=== PATIENT | female | born 1980 | race Caucasian/White ===

== ENCOUNTER 2017-03-31 06:08 | Inpatient (IN) | payer OTHER ==
[2017-03-31] MEDS ORDERED: OXYTOCIN 10 UNIT/ML 1 ML VIAL IM PRN (06:16)
[2017-03-31] MEDS ORDERED: METHYLERGONOVINE 0.2 MG/ML 1 ML AMP IM PRN (06:16)
[2017-03-31] MEDS ORDERED: TERBUTALINE 1 MG/ML VIAL SQ PRN (06:16)
[2017-03-31] MEDS ORDERED: LIDOCAINE 1% (PF) 10 MG/ML (30 ML SDV) SQ PRN (06:16)
[2017-03-31] MEDS ORDERED: CARBOPROST TROMETHAMINE 250 MCG/ML 1 ML AMP IM PRN (06:16)
[2017-03-31] MEDS ORDERED: PENICILLIN G POTASSIUM 5,000,000 UNIT in DEXTROSE 5% IN WATER 100 ML IV STA ×2 (06:16)
[2017-03-31] MEDS: LACTATED RINGERS 1,000 ML IV SCH ×3 (06:33→21:53)
[2017-03-31] MEDS: OXYTOCIN 20 UNITS/1000 ML NS 1,000 ML IV SCH (06:33)
[2017-03-31 06:39] LABS: Basophils % (A) 0 %; CH 32.3; CHCM 35.1; Eosinophils # (A) 0.3 k/uL (0-0.7); Eosinophils % (A) 2 %; HCT 40.7 % (34.0-46.0); HDW 2.47; HGB 14.1 gm/dL (11.4-16.0); Luc # (Auto) 0.14; Luc % (Auto) 1; Lymphocytes # (A) 1.8 k/uL (1.0-4.8); Lymphocytes % (A) 15 %; MCHC 34.6 g/dL (31.0-37.0); MCV 92.5 fL (80.0-100.0); Mean Platelet Volume 7.6; Monocytes # (A) 0.6 k/uL (0-1.0); Monocytes % (A) 5 %; Neutrophils # (A) 9.4 k/uL (1.3-7.7); Neutrophils % (A) 77 %; RDW 14.3 % (11.5-15.5); WBC 12.2 k/uL (3.8-10.6); WBC (Perox) 11.87
--- NOTE | 2017-03-31 06:39 | P.HPOB ---
History of Present Illness H&P Date: 03/31/17 Chief Complaint: Here for induction of labor at 39 and one sevenths weeks This is a 36-year-old white female 3 para 2002 EDC 04/07/2017 at 39 and one sevenths weeks' gestation. Patient presents this morning for induction with favorable multiparous cervix. Fetus is been active throughout the . She is having mild uterine contractions every 3-4 minutes apart at this time. She denies fluid leakage or vaginal bleeding. Past medical history is significant for tachycardia in the past, pneumonia as a child, and menometrorrhagia in the past. Past surgical history wisdom teeth extracted in the past, benign cyst removed of the neck. Current medications Reglan 10 mg 20 minutes before meals when necessary, vitamin daily. ALLERGIES include Unisom to which patient reports chest pain. Family history is significant for lung cancer, hypertension, prostate cancer, COPD, diabetes. Obstetric history is significant for 2 full-term vaginal deliveries, both male. Social history patient is , she has never been a smoker, she denies alcohol or drug use. Obstetric history is significant for positive group B strep cultures, blood type B positive, rubella status nonimmune. Urine culture, hepatitis B surface antigen, HIV testing all negative. One-hour Glucola 86. On exam this is a pleasant white female, she is 5 foot 5 inches, 156 pounds, blood pressure 133/75. Vital signs are stable and the patient is afebrile. The general physical exam is within normal limits. Uterine contractions are occurring spontaneously every 4-7 minutes apart of mild intensity. heart rate is in the 140s with frequent accelerations consistent with reactive NST. Cervix is 4 cm dilated, 60-70%, -2 station, vertex presentation. Artificial amniorrhexis reveals clear fluid. Impression: 39 and one sevenths weeks intrauterine , here for induction of labor. Positive group B strep cultures. All signs reassuring. Plan: Penicillin G prophylaxis per protocol. Oxytocin augmentation as needed. Close maternal and surveillance. Anticipate normal spontaneous vaginal delivery. Review of Systems Negative except as in HPI Past Medical History Past Medical History: No Reported History History of Any Multi-Drug Resistant Organisms: None Reported Past Surgical History: No Surgical Hx Reported Past Psychological History: Anxiety Smoking Status: Never smoker Past Alcohol Use History: None Reported Past Drug Use History: None Reported Medications and Allergies Home Medications Medication Instructions Recorded Confirmed Type Pnv,Calcium 72/Iron/Folic Acid 1 tab PO DAILY 03/31/17 03/31/17 History [ Plus Tablet] Allergies Allergy/AdvReac Type Severity Reaction Status Date / Time No Known Drug Allergies Allergy Unknown Verified 03/31/17 06:15 Exam - Vital Signs Vital signs: Intake and Output 03/30/17 03/30/17 03/31/17 14:59 22:59 06:59 Other: Weight 70.76 kg Patient Weight 03/31/17 06:59 Weight 70.76 kg See dictation under HPI Assessment and Plan Plan: Penicillin G prophylaxis per hospital protocol. Oxytocin augmentation per hospital protocol. Close maternal and surveillance. Anticipating normal spontaneous vaginal delivery. Time with Patient: Less than 30
[2017-03-31 07:18] VITALS: BMI 25.9
[2017-03-31] MEDS ORDERED: fentaNYL (PF) 50 MCG/ML 5 ML AMP ONE (08:52)
[2017-03-31] MEDS ORDERED: SODIUM CHLORIDE 0.9% 100 ML BAG ONE (08:52)
[2017-03-31] MEDS ORDERED: BUPIVACAINE (PF) 0.25% 30 ML VIAL ONE (08:52)
[2017-03-31] MEDS ORDERED: BUPIVACAINE (PF) 0.25% 25 ML, fentaNYL (PF) 200 MCG in SODIUM CHLORIDE 0.9% 71 ML EPIDURAL ONE (09:08)
[2017-03-31] MEDS: PENICILLIN G POTASSIUM 2,500,000 UNIT in DEXTROSE 5% IN WATER 100 ML IV SCH ×6 (10:31→21:53)
[2017-03-31] MEDS ORDERED: HYDROCORTISONE 2.5% RECTAL CREAM 30 GM TUBE RECTAL PRN (12:03)
[2017-03-31] MEDS ORDERED: SIMETHICONE 80 MG CHEWABLE PO PRN (12:03)
[2017-03-31] MEDS ORDERED: IBUPROFEN 600 MG TAB PO PRN (12:03)
[2017-03-31] MEDS ORDERED: Acetaminophen-Codeine 300-30mg TAB PO PRN (12:03)
[2017-03-31] MEDS ORDERED: diphenhydrAMINE 50 MG/ML 1 ML VIAL IVP PRN ×2 (12:03)
[2017-03-31] MEDS ORDERED: LANOLIN CREAM 5 GM TUBE TOPICAL PRN (12:03)
[2017-03-31] MEDS ORDERED: ACETAMINOPHEN TAB 325 MG TAB PO PRN (12:03)
[2017-03-31] MEDS ORDERED: BENZOCAINE/MENTHOL SPRAY 1 GM/SPRAY AEROSOL TOPICAL PRN (12:03)
[2017-03-31] MEDS ORDERED: ZOLPIDEM 5 MG TAB PO PRN (12:03)
[2017-03-31] MEDS ORDERED: diphenhydrAMINE 50 MG CAP PO PRN (12:03)
[2017-03-31] MEDS ORDERED: diphenhydrAMINE 25 MG CAP PO PRN (12:03)
[2017-03-31] MEDS ORDERED: WITCH HAZEL 1 EACH MED..PAD TOPICAL PRN (12:03)
--- NOTE | 2017-03-31 12:03 | P.PROBDLV ---
Vaginal Delivery Note - . Vaginal Delivery Note: This is a 36-year-old 3 para 2002 EDC 04/07/2017 at 39 and one sevenths weeks' gestation. Patient presented for induction with favorable cervix and increasing maternal discomfort. Fetus is been active throughout the . Group B strep cultures are positive, penicillin G has been given 2 units per hospital protocol. Epidural has been placed per her request. Artificial amniorrhexis did reveal clear fluid. Please see my dictated history and physical for details. Patient had a strong urge to push and was judged to be completely dilated at 1144 hours perineal body was prepped and draped in usual sterile fashion. With excellent maternal expulsive efforts and good positioning, the 's head crowned in the occiput anterior position and restituted accordingly. There was a body cord that was delivered along with the infant along side the neck. The left or anterior shoulder was gently and easily delivered from underneath the pubic symphysis at which time the oropharynx, nasopharynx, and external nares were all bulb suctioned on the perineal body. Patient was officially delivered of a liveborn male at 1150 hours. Umbilical cord was doubly clamped and ligated, he was handed to waiting nurses for evaluation where scores of 9 and 9 at one and 5 minutes respectively were given. The placenta delivered spontaneously, it was inspected and noted to be intact with trivascular cord at 1156 hours. At this time the perineal body was redraped. Inspection of the cervix, vagina, perineal, periurethral and perirectal areas revealed a very small first-degree perineal laceration at 6: 00. This was repaired with a single jarhub-qb-idzaj suture of 3-0 Vicryl. Fundus is firm and in the midline, symmetric and 18 week size upon completion of delivery. All sponge needle and enhancement counts are correct. Total estimated blood loss 250 mL's. And her are requesting circumcision further son.
[2017-03-31] MEDS: SENNOSIDES-DOCUSATE SODIUM 1 EACH TAB PO SCH (21:32)
[2017-04-01] MEDS: PENICILLIN G POTASSIUM 2,500,000 UNIT in DEXTROSE 5% IN WATER 100 ML IV SCH ×2 (04:23)
--- NOTE | 2017-04-01 09:00 | P.DS ---
Providers Date of admission: 03/31/17 06:08 Expected date of discharge: 04/01/17 Attending physician: Lesia Nguyen [facility]: This is a 36-year-old white female 3 para 2002 EDC 04/07/2017 at 39 and one sevenths weeks' gestation. Patient presented for elective induction at term with favorable multiparous cervix. was essentially unremarkable , group B strep cultures were positive, rubella status immune. Please see dictated history and physical for details. Patient received penicillin G 2 doses as per protocol. She went on to deliver a liveborn male infant with scores of 9 and 9 at one and 5 minutes respectively. Infant weighed 6 lbs. 15 oz. or 3155 g. There was an estimated blood loss of 250 mL's. Please see my dictated delivery note for details. This morning the patient is doing well. Circumcision has been performed. The patient is voiding, and bleeding, passing flatus without difficulty. Vital signs are stable and she is afebrile. Fundus is firm and in the midline, symmetric and 18 week size. Extremities are negative for edema. Breasts are not engorged. Perineal body is clean and dry. Patient will be discharged home later today. She is in very good condition for discharge. I have reminded her no intercourse, tampons or douching. She will use hvsg-xbl-aibsxqb ibuprofen products as needed for pain. I've asked her to call me with any fevers shakes or chills, foul smelling or copious lochia, with the passage of large blood clots, with any pain not alleviated by over-the- counter products, or indeed with any concerns. Plan - Discharge Summary New Discharge Prescriptions: No Action Pnv,Calcium 72/Iron/Folic Acid [ Plus Tablet] 1 tab PO DAILY Discharge Medication List Pnv,Calcium 72/Iron/Folic Acid [ Plus Tablet] 1 tab PO DAILY 03/31/17 [ History] Follow up Appointment(s)/Referral(s): Lesia Nguyen MD [STAFF PHYSICIAN] - 6 Weeks Discharge Disposition: HOME SELF-CARE
[2017-04-02] MEDS: LACTATED RINGERS 1,000 ML IV SCH ×2 (00:03→00:04)
[2017-04-02] MEDS: OXYTOCIN 20 UNITS/1000 ML NS 1,000 ML IV SCH (00:04)
[2017-04-02] MEDS: SENNOSIDES-DOCUSATE SODIUM 1 EACH TAB PO SCH (00:04)
[2017-04-02] MEDS: PENICILLIN G POTASSIUM 2,500,000 UNIT in DEXTROSE 5% IN WATER 100 ML IV SCH ×4 (04:26→04:27)
[2017-04-02 10:14] VITALS: BP 116/70; PULSE 76; RESP 20; TEMP 98.2
== END 2017-04-02 11:25 | disposition home or self-care (01) | DRG 775 ==
LOC: 4FBP 06:08
PROVIDERS: ADMIT Obstetrics & Gynecology; ATTEND Obstetrics & Gynecology
PROC: 10E0XZZ Delivery of Products of Conception, External Approach (ICD-10-PCS; principal; 2017-03-31)
PROC: 10907ZC Drainage of Amniotic Fluid, Therapeutic from Products of Conception, Via Natural or Artificial Opening (ICD-10-PCS; 2017-03-31)
PROC: 3E033VJ Introduction of Other Hormone into Peripheral Vein, Percutaneous Approach (ICD-10-PCS; 2017-03-31)
PROC: 0HQ9XZZ Repair Perineum Skin, External Approach (ICD-10-PCS; 2017-03-31)
PROC: 3E0S3NZ Introduction of Analgesics, Hypnotics, Sedatives into Epidural Space, Percutaneous Approach (ICD-10-PCS; 2017-03-31)
DX: O70.0 First degree perineal laceration during delivery (principal); O99.344 Other mental disorders complicating childbirth; F41.9 Anxiety disorder, unspecified; O99.824 Streptococcus B carrier state complicating childbirth; O69.89X0 Labor and delivery complicated by other cord complications, not applicable or unspecified; Z3A.39 39 weeks gestation of pregnancy; Z37.0 Single live birth; Z80.1 Family history of malignant neoplasm of trachea, bronchus and lung; Z82.49 Family history of ischemic heart disease and other diseases of the circulatory system; Z82.5 Family history of asthma and other chronic lower respiratory diseases; Z83.3 Family history of diabetes mellitus; Z79.899 Other long term (current) drug therapy; Z88.8 Allergy status to other drugs, medicaments and biological substances; Z80.42 Family history of malignant neoplasm of prostate; Z86.79 Personal history of other diseases of the circulatory system; Z87.01 Personal history of pneumonia (recurrent); Z87.42 Personal history of other diseases of the female genital tract
CPT/HCPCS: 85025; 88307

== ENCOUNTER → 2018-01-31 | Outpatient (CLI) | payer OTHER ==
[2018-01-31 12:35] LABS: Basophils % (A) 0 %; Eosinophils # (A) 0.4 k/uL (0-0.7); Eosinophils % (A) 2 %; HCT 40.4 % (34.0-46.0); HGB 13.7 gm/dL (11.4-16.0); Lymphocytes # (A) 1.8 k/uL (1.0-4.8); Lymphocytes % (A) 11 %; MCH 30.2 pg (25.0-35.0); MCHC 33.9 g/dL (31.0-37.0); Mean Platelet Volume 7.2; Monocytes # (A) 0.3 k/uL (0-1.0); Monocytes % (A) 2 %; Neutrophils # (A) 13.7 k/uL (1.3-7.7); Neutrophils % (A) 84 %; Platelet Count 388 k/uL (150-450); RBC 4.54 m/uL (3.80-5.40); RDW 12.8 % (11.5-15.5); WBC 16.3 k/uL (3.8-10.6)
[2018-01-31 12:36] LABS: ALT 24 U/L (9-52); AST 18 U/L (14-36); Albumin 4.6 g/dL (3.5-5.0); Alkaline Phosphatase 109 U/L (38-126); Anion Gap 16 mmol/L; Blood Urea Nitrogen 12 mg/dL (7-17); Calcium 9.6 mg/dL (8.4-10.2); Carbon Dioxide 23 mmol/L (22-30); Chloride 104 mmol/L (98-107); Glucose 86 mg/dL (74-99); Potassium 4.4 mmol/L (3.5-5.1); Sodium 143 mmol/L (137-145); Total Bilirubin 0.4 mg/dL (0.2-1.3); Total Protein 7.7 g/dL (6.3-8.2)
--- NOTE | 2018-01-31 13:34 | XR ---
EXAMINATION TYPE: XR chest 2V DATE OF EXAM: 01/31/2018 COMPARISON: Prior chest 08/21/2016 HISTORY: Shortness of breath and fever TECHNIQUE: Frontal and lateral views of the chest are obtained. FINDINGS: There is no focal air space opacity, pleural effusion, or pneumothorax seen. The cardiac silhouette size is within normal limits. There is a pectus deformity present. The osseous structure s are intact. IMPRESSION: No acute cardiopulmonary process.
== END | disposition home or self-care (01) ==
LOC: LABWHC1 12:04
PROVIDERS: ATTEND Family Medicine
DX: R06.02 Shortness of breath (principal); R50.9 Fever, unspecified; Z13.220 Encounter for screening for lipoid disorders
CPT/HCPCS: 36415; 71046; 80053; 85025; 85379

== ENCOUNTER 2019-01-31 05:56 | Inpatient (IN) | payer OTHER ==
[2019-01-31] MEDS ORDERED: LIDOCAINE 0.5% (PF) 5 MG/ML (50 ML SDV) SQ PRN (06:25)
[2019-01-31] MEDS ORDERED: TERBUTALINE 1 MG/ML VIAL SQ PRN (06:25)
[2019-01-31] MEDS ORDERED: CARBOPROST TROMETHAMINE 250 MCG/ML 1 ML AMP IM PRN (06:25)
[2019-01-31] MEDS ORDERED: OXYTOCIN 10 UNIT/ML 1 ML VIAL IM PRN (06:25)
[2019-01-31] MEDS ORDERED: METHYLERGONOVINE 0.2 MG/ML 1 ML AMP IM PRN (06:25)
[2019-01-31] MEDS ORDERED: OXYTOCIN 30 UNITS/500 ML NS 30 UNIT in SALINE 1 500ML.BAG IV SCH (06:30)
[2019-01-31 06:32] LABS: Basophils # (A) 0.1 k/uL (0-0.2); Basophils % (A) 1 %; Eosinophils # (A) 0.2 k/uL (0-0.7); Eosinophils % (A) 2 %; HCT 40.9 % (34.0-46.0); HGB 13.7 gm/dL (11.4-16.0); Lymphocytes # (A) 1.7 k/uL (1.0-4.8); Lymphocytes % (A) 15 %; MCH 30.7 pg (25.0-35.0); MCHC 33.6 g/dL (31.0-37.0); MCV 91.4 fL (80.0-100.0); Monocytes # (A) 0.4 k/uL (0-1.0); Monocytes % (A) 3 %; Neutrophils # (A) 8.9 k/uL (1.3-7.7); Neutrophils % (A) 79 %; Platelet Count 296 k/uL (150-450); RBC 4.47 m/uL (3.80-5.40); RDW 14.3 % (11.5-15.5); WBC 11.4 k/uL (3.8-10.6)
[2019-01-31] MEDS: LACTATED RINGERS 1,000 ML IV SCH ×3 (06:39→10:55)
[2019-01-31] MEDS ORDERED: PENICILLIN G POTASSIUM 5,000,000 UNIT in DEXTROSE 5% IN WATER 100 ML IVPB ONE ×2 (07:00)
--- NOTE | 2019-01-31 07:31 | P.HPOB ---
History of Present Illness H&P Date: 01/31/19 This is a 38-year-old white female 4 para 3003 EDC 02/07/2019 at 39 weeks gestation. Patient initially presented for induction for favorable multiparous cervix. She is having spontaneous contractions which she is rating as mild. Fetus is been active throughout the . She denies fluid leakage or vaginal bleeding. Past medical history is significant for irregular tachycardia, no obvious cardiac etiology. Past surgical history wisdom teeth extracted,'s in grafting via oral surgery, and a benign cyst removal of the neck. Current medications vitamins daily. ALLERGIES include Unisom to which she reports pain in the left shoulder. Family history is significant for lung cancer, COPD, diabetes and hypertension, hypercholesterolemia, postmenopausal breast cancer. Reproductive history is significant for vaginal deliveries 3, all male infants, unremarkable. Social history patient is , she has never been a smoker, she denies alcohol or drug use. history is significant for positive group B strep cultures, blood type B positive, rubella status immune. VDRL testing, urine culture, hepatitis B surface antigen, HIV testing, GC and chlamydia cultures all negative. One-hour Glucola 87. On exam this is a pleasant white female who is 5 foot 4 inches, 160 pounds, blood pressure 109/74, vital signs are stable and she is afebrile. The general physical exam is within normal limits. Cervix is 7 cm dilated, 60-70% effaced, vertex presentation, -2 station, soft and anterior. Artificial amniorrhexis reveals clear fluid. heart rate is in the 150s with frequent accelerations consistent with reactive NST. Uterine contractions are occurring every 4-5 minutes apart. Impression: Intrauterine , here for induction of labor, in early spontaneous labor. Positive group B strep cultures, first dose of penicillin has been infused. All signs otherwise reassuring. Plan: Patient is requesting epidural at this time, anesthesia staff is present and aware. Continue close maternal and surveillance. Anticipate normal spontaneous vaginal delivery. Review of Systems Constitutional: Reports as per HPI Past Medical History Past Medical History: No Reported History History of Any Multi-Drug Resistant Organisms: None Reported Past Surgical History: No Surgical Hx Reported Past Anesthesia/Blood Transfusion Reactions: No Reported Reaction Past Psychological History: Anxiety Smoking Status: Never smoker Past Alcohol Use History: None Reported Past Drug Use History: None Reported - Past Family History Father Family Medical History: COPD, Hyperlipidemia, Hypertension Mother Family Medical History: Diabetes Mellitus Medications and Allergies Home Medications Medication Instructions Recorded Confirmed Type Pnv,Calcium 72/Iron/Folic Acid 1 tab PO DAILY 03/31/17 01/31/19 History [ Plus Tablet] Allergies Allergy/AdvReac Type Severity Reaction Status Date / Time doxylamine Allergy Rapid Verified 01/31/19 06:23 [From Unisom (doxylamine)] Heart Rate Exam Intake and Output 01/30/19 01/31/19 01/31/19 22:59 06:59 14:59 Other: Weight 72.575 kg See dictation under HPI please Results Result Diagrams: 01/31/19 06:25 Abnormal Lab Results - Last 24 Hours (Table) 01/31/19 Range/Units 06:25 WBC 11.4 H (3.8-10.6) k/uL Neutrophils # 8.9 H (1.3-7.7) k/uL Assessment and Plan Assessment: 39 week intrauterine , active spontaneous labor, advanced maternal age, positive group B strep cultures Plan: Penicillin G per hospital protocol. Epidural to be placed at this time per her request. Continue close maternal and surveillance. Anticipate normal sp ontaneous vaginal delivery. Time with Patient: Less than 30
[2019-01-31] MEDS ORDERED: ROPIVACAINE 100 MG, fentaNYL (PF) 200 MCG in SODIUM CHLORIDE 0.9% 76 ML EPIDURAL ONE (07:55)
[2019-01-31 07:58] VITALS: BMI 27.4
[2019-01-31] MEDS: PENICILLIN G POTASSIUM 2,500,000 UNIT in DEXTROSE 5% IN WATER 100 ML IVPB SCH ×2 (11:14)
[2019-01-31] MEDS ORDERED: LANOLIN CREAM 5 GM TUBE TOPICAL PRN (12:58)
[2019-01-31] MEDS ORDERED: BENZOCAINE/MENTHOL SPRAY 1 GM/SPRAY AEROSOL TOPICAL PRN (12:58)
[2019-01-31] MEDS ORDERED: WITCH HAZEL 1 EACH MED..PAD TOPICAL PRN (12:58)
[2019-01-31] MEDS ORDERED: ACETAMINOPHEN TAB 325 MG TAB PO PRN (12:58)
[2019-01-31] MEDS ORDERED: HYDROCORTISONE 2.5% RECTAL CREAM 30 GM TUBE RECTAL PRN (12:58)
[2019-01-31] MEDS ORDERED: ZOLPIDEM 5 MG TAB PO PRN (12:58)
[2019-01-31] MEDS ORDERED: SIMETHICONE 80 MG CHEWABLE PO PRN (12:58)
--- NOTE | 2019-01-31 12:58 | P.PROBDLV ---
Vaginal Delivery Note - . Vaginal Delivery Note: This is a 38 and white female 4 para 3003 EDC 02/07/2019 at 39 weeks gestation. Patient was initially scheduled for induction, but presented in early spontaneous labor. Fetus is been active throughout the . Rupee strep cultures are positive, rubella status immune. Please see dictated history and physical for details. On admission patient was 7 cm dilated. Artificial amniorrhexis revealed clear fluid. Epidural was placed per her request. Oxytocin was started and titrated per hospital protocol. Penicillin G was also given per protocol, 2 units were received 4 hours apart. Patient progressed well through the first stage of labor and was judged to be completely dilated. Perineal body was prepped and draped in usual sterile fashion. With excellent maternal expulsive efforts the 's head delivered occiput anteriorly and she restituted accordingly. There was a tight nuchal cord that was reduced 1. The right or anterior shoulder was delivered from underneath the pubic symphysis easily, at which time the oropharynx, nasopharynx, and external nares were bulb suctioned on the perineal body. Patient was officially delivered of a liveborn female at 1240. Umbilical cord was doubly clamped and ligated, she was handed to waiting nurses for evaluation where scores of 9 and 9 at one and 5 minutes respectively are given. Placenta delivered spontaneously, it was inspected and noted to be intact with trivascular cord at 1244 hours. It was inspected, noted to be intact with trivascular cord. The uterus is then massaged. Inspection of the cervix, vagina, perineum, periurethral, and perirectal areas revealed no lacerations and no defects. Total estimated blood loss 250 mL's. Infant weighs 8 pounds 2.7 ounces or 12/07/2004 grams. All sponge needle and enhancement counts are correct at the end of the procedure. Patient and her family are allowed to begin the bonding experience in the LDR.
[2019-01-31] MEDS ORDERED: OXYTOCIN 20 UNITS/1000 ML NS 1,000 ML IV SCH (13:00)
[2019-01-31] MEDS ORDERED: LORATADINE-PSEUDOEPH 5-120 MG 1 EACH TAB.ER.12H PO PRN (17:26)
[2019-01-31] MEDS: IBUPROFEN 600 MG TAB PO PRN (18:18)
[2019-01-31] MEDS: SENNOSIDES-DOCUSATE SODIUM 1 EACH TAB PO SCH (19:42)
[2019-02-01] MEDS: PENICILLIN G POTASSIUM 2,500,000 UNIT in DEXTROSE 5% IN WATER 100 ML IVPB SCH ×2 (00:51)
--- NOTE | 2019-02-01 06:52 | P.DS ---
Providers Date of admission: 01/31/19 05:56 Expected date of discharge: 02/01/19 Attending physician: Lesia Nguyen Primary care physician: Kanchan Garzon [facility] Course: This is a 38-year-old white female 4 para 3003 EDC 02/07/2019 at 39 weeks gestation. Patient presented for induction with favorable multiparous cervix. Her history is significant for positive group B strep cultures, blood type B positive, rubella status immune. Please see my dictated history and physical for details. 2 doses of penicillin G were given throughout the course of the first stage of labor. Artificial amniorrhexis revealed clear fluid. Epidural was placed per her request and oxytocin titrated per hospital protocol. Patient went on to deliver vaginally a liveborn female with scores of 9 and 9 at one and 5 minutes respectively. There was a nuchal cord 1 that was easily reduced. No perineal lacerations were encountered. Estimated blood loss 250 mL's. weighed 12/07/2004 grams or 8 lbs. 2 oz. Please see my dictated delivery note for details. This morning the patient is doing well. She is mildly congested for which Claritin has been given. Her lochia is moderate, no large clots. Breasts are not engorged. Breast-feeding is going well. Extremities are negative for edema. Chest is clear in all alejandro. [place] infant is doing well. Fundus is firm and in the midline, symmetric and 18 week size. Perineal body is clean and dry. She is voiding and ambulating without difficulty, passing gas, and vital signs have remained stable. Plan is for discharge home later today. She will follow-up with me in the office in 6 weeks. I have reminded her no intercourse, tampons or douching. She will use xqlu-kjg-egimrug products, Advil or Aleve, or Motrin as needed for pain. I've asked her to call me with any fevers shakes or chills, foul smelling or copious lochia, with the passage of large blood clots, with any pain not alleviated by pbdh-ixv-xqvqize products, or indeed with any concerns. [place] infant will follow-up with procurement engineer as per recommendations. We have discussed options for contraception, and she and her will discuss both tubal ligation and vasectomy. Patient Condition at Discharge: Good Plan - Discharge Summary Discharge Rx Participant: No New Discharge Prescriptions: No Action Pnv,Calcium 72/Iron/Folic Acid [ Plus Tablet] 1 tab PO DAILY Discharge Medication List Pnv,Calcium 72/Iron/Folic Acid [ Plus Tablet] 1 tab PO DAILY 03/31/17 [History] Follow up Appointment(s)/Referral(s): Lesia Nguyen MD [STAFF PHYSICIAN] - 6 Weeks Discharge Disposition: HOME SELF-CARE
[2019-02-01] MEDS: SENNOSIDES-DOCUSATE SODIUM 1 EACH TAB PO SCH ×2 (07:42→19:26)
[2019-02-01] MEDS: IBUPROFEN 600 MG TAB PO PRN (19:27)
[2019-02-02] MEDS: SENNOSIDES-DOCUSATE SODIUM 1 EACH TAB PO SCH (08:10)
[2019-02-02 09:48] VITALS: BP 104/64; PULSE 87; RESP 18; TEMP 97.8
[2019-02-02] MEDS: IBUPROFEN 600 MG TAB PO PRN (09:58)
== END 2019-02-02 12:10 | disposition home or self-care (01) | DRG 807 ==
LOC: 4FBP 05:56
PROVIDERS: ADMIT Obstetrics & Gynecology; ATTEND Obstetrics & Gynecology
PROC: 10E0XZZ Delivery of Products of Conception, External Approach (ICD-10-PCS; principal; 2019-01-31)
PROC: 3E0R3NZ Introduction of Analgesics, Hypnotics, Sedatives into Spinal Canal, Percutaneous Approach (ICD-10-PCS; principal; 2019-01-31)
PROC: 00HU33Z Insertion of Infusion Device into Spinal Canal, Percutaneous Approach (ICD-10-PCS; principal; 2019-01-31)
PROC: 10907ZC Drainage of Amniotic Fluid, Therapeutic from Products of Conception, Via Natural or Artificial Opening (ICD-10-PCS; principal; 2019-01-31)
PROC: 3E033VJ Introduction of Other Hormone into Peripheral Vein, Percutaneous Approach (ICD-10-PCS; principal; 2019-01-31)
DX: O99.824 Streptococcus B carrier state complicating childbirth (principal); Z37.0 Single live birth; O69.1XX0 Labor and delivery complicated by cord around neck, with compression, not applicable or unspecified; Z3A.39 39 weeks gestation of pregnancy; Z80.1 Family history of malignant neoplasm of trachea, bronchus and lung; Z80.3 Family history of malignant neoplasm of breast; Z82.49 Family history of ischemic heart disease and other diseases of the circulatory system; Z82.5 Family history of asthma and other chronic lower respiratory diseases; Z83.3 Family history of diabetes mellitus
CPT/HCPCS: 85025; 86850; 86900; 86901

== ENCOUNTER → 2020-09-01 | Outpatient (CLI) | payer OTHER ==
--- NOTE | 2020-09-01 14:47 | MM ---
Reason for exam: screening (asymptomatic). Baseline mammogram. History: Family history of breast cancer in mother at age 70. Physical Findings: Nurse did not find any significant physical abnormalities on exam. MG 3D Screening Mammo W/Cad Bilateral CC and MLO view(s) were taken. The breast tissue is heterogeneously dense. This may lower the sensitivity of mammography. Posterior central asymmetric density left MLO view incompletely disperses on 3 D images. Otherwise, no discrete abnormality. These results were verbally communicated with the patient and result sheet given to the patient on 09/01/20. ASSESSMENT: Incomplete: need additional imaging evaluation, BI-RAD 0 RECOMMENDATION: Special view mammogram of the left breast. (3D)
--- NOTE | 2020-09-01 14:49 | MM ---
Reason for exam: additional evaluation requested from abnormal screening. History: Family history of breast cancer in mother at age 70. Physical Findings: Breast exam preformed at baseline screening. MG 3D Work Up W/Cad LT LM and spot compression MLO view(s) were taken of the left breast. The breast tissue is heterogeneously dense. This may lower the sensitivity of mammography. Posterior central asymmetric density left MLO view disperses on additional views. These results were verbally communicated with the patient and result sheet given to the patient on 09/01/20. ASSESSMENT: Negative, BI-RAD 1 RECOMMENDATION: Routine screening mammogram of both breasts at age 42.
== END | disposition home or self-care (01) ==
LOC: RADMAMWWP 13:34
PROVIDERS: ATTEND Family Medicine
DX: Z12.31 Encounter for screening mammogram for malignant neoplasm of breast (principal); Z80.3 Family history of malignant neoplasm of breast; R92.8 Other abnormal and inconclusive findings on diagnostic imaging of breast
CPT/HCPCS: 77061; 77063; 77065; 77067

== ENCOUNTER → 2022-04-02 | Outpatient (CLI) | payer OTHER ==
--- NOTE | 2022-04-06 07:52 | MM ---
Reason for Exam: Screening (asymptomatic). Last mammogram was performed 1 year(s) and 8 month(s) ago. Patient History: Menarche at age 12. First Full-Term at age 30. Mother had breast cancer, age 70. Risk Values: Jana 5 year model risk: 1.2%. NCI Lifetime model risk: 20.4%. Prior Study Comparison: 09/01/2020 Bilateral Screening Mammogram, [facility]. 09/01/2020 Left Diagnostic Mammogram, [facility]. Tissue Density: The breast tissue is extremely dense which could obscure a lesion on mammography. Findings: Analyzed By CAD. There is no suspicious group of microcalcifications or new suspicious mass in either breast. Overall Assessment: Negative, BI-RAD 1 Management: Screening Mammogram of both breasts. A clinical breast exam by your physician is recommended on an annual basis and results should be correlated with mammographic findings. Electronically signed and approved by: James Lopez M.D. Radiologis
== END | disposition home or self-care (01) ==
LOC: RADMAMWWP 11:27
PROVIDERS: ATTEND Obstetrics & Gynecology
DX: Z12.31 Encounter for screening mammogram for malignant neoplasm of breast (principal); Z80.3 Family history of malignant neoplasm of breast
CPT/HCPCS: 77063; 77067

== ENCOUNTER → 2022-04-27 | Outpatient (CLI) | payer OTHER ==
[2022-04-27 19:14] LABS: Basophils # (A) 0.01 X 10*3/uL (0.00-0.10); Basophils % (A) 0.2 %; Eosinophils # (A) 0 X 10*3/uL (0.04-0.35); Eosinophils % (A) 0 %; HCT 35.6 % (37.2-46.3); HGB 11.2 g/dL (12.0-15.0); Immature Grans, Automated 0.3 %; Lymphocytes # (A) 2.01 X 10*3/uL (0.90-5.00); Lymphocytes % (A) 33.8 %; MCH 27.7 pg (27.0-32.0); MCHC 31.5 g/dL (32.0-37.0); MCV 88.1 fL (80.0-97.0); Mean Platelet Volume 10.1 fL (9.5-12.2); Monocytes # (A) 0.41 X 10*3/uL (0.20-1.00); Monocytes % (A) 6.9 %; NRBC Per 100 WBC 0 /100 WBCS (0.0-0.0); Neutrophils % (A) 58.8 %; Platelet Count 334 X 10*3/uL (140-440); RBC 4.04 X 10*6/uL (4.10-5.20); WBC 5.95 X 10*3/uL (4.50-10.00)
== END | disposition home or self-care (01) ==
LOC: LABPAT 12:35
PROVIDERS: ATTEND Obstetrics & Gynecology
DX: Z01.812 Encounter for preprocedural laboratory examination (principal); N92.0 Excessive and frequent menstruation with regular cycle
CPT/HCPCS: 85025

== ENCOUNTER 2022-05-18 08:48 | Day surgery (SDC) | payer OTHER ==
--- NOTE | 2022-05-13 10:30 | HP ---
HISTORY AND PHYSICAL DATE OF SURGERY: On May 18. HISTORY OF PRESENT ILLNESS: This is a 42-year-old female, 4, para 4-0-0-4, who presents with a history of very heavy menstrual cycles, lasting sometimes up to 12 days in duration. Her has had a vasectomy. After thorough consultation, the patient is electing to proceed with hysteroscopy and NovaSure endometrial ablation. PAST MEDICAL HISTORY: Significant for anxiety, metrorrhagia, tachycardia. PAST SURGICAL HISTORY: Benign neck cyst excised, endometrial biopsy, oral surgery. CURRENT MEDICATIONS: 1. Calcium 500 mg daily. 2. Clonazepam 0.5 mg daily. 3. Vitamin daily. 4. Pristiq 50 mg once daily. ALLERGIES: Include clindamycin to which reports acid reflux and Unisom to which reports chest pain. FAMILY HISTORY: Significant for hypertension, diabetes, prostate cancer, lung cancer, COPD, hypercholesterolemia, breast cancer. REPRODUCTIVE HISTORY: Significant for normal spontaneous vaginal deliveries x4. SOCIAL HISTORY: The patient has never been a smoker. She denies alcohol or drug use. She is . REVIEW OF SYSTEMS: Otherwise negative. PHYSICAL EXAMINATION: VITAL SIGNS: The patient is 5 feet 5 inches, 131 pounds. Blood pressure 102/64. HEENT: Reveals no thyromegaly, no cervical lymphadenopathy. CHEST: Clear to auscultation in all alejandro anteriorly and posteriorly. CARDIAC: Reveals regular rate and rhythm with no murmur, click, or rub. ABDOMEN: Soft and nontender. No organo, splenomegaly. EXTREMITIES: Reveal no edema. PELVIC: Reveals a multiparous cervix, small anteverted uterus, bilateral adnexa are negative. RECTAL: Reveals good tone. No defects or foreign bodies. IMPRESSION: Metrorrhagia, requesting NovaSure ablation. Partner with a vasectomy. PLAN: We will proceed with hysteroscopy, NovaSure endometrial ablation. The risks, benefits, and alternatives of this plan have been discussed thoroughly. The risks of anesthesia including aspiration, nerve damage, or even were also reviewed. All questions answered. The informational pamphlet are given for her review as well. I believe the patient understands this discussion with . MMODL / IJN: [id number] /
[2022-05-13 11:04] VITALS: BMI 20.9
[~2022-05-18 08:48] MED LIST: DEXAMETHASONE SOD PHOSPHATE 4 MG/ML 1 ML VIAL IV ONE; HYDROmorphone 0.5 MG/0.5 ML SYRINGE IVP PRN; LACTATED RINGERS 1,000 ML IV SCH; ONDANSETRON 4 MG/2 ML VIAL IVP ONE; Pre Op ABX Message 1 EACH MISC MISCELLANE ONE
[2022-05-18] MEDS ORDERED: LIDOCAINE 2% INJ 20 MG/ML (2 ML VIAL) ONE (10:30)
[2022-05-18] MEDS ORDERED: MIDAZOLAM 2 MG/2 ML VIAL ONE (10:30)
[2022-05-18] MEDS ORDERED: KETOROLAC 15 MG/ML 1 ML VIAL ONE (10:30)
[2022-05-18] MEDS ORDERED: PROPOFOL 10 MG/ML 20 ML VIAL IV ONE (10:30)
[2022-05-18] MEDS ORDERED: fentaNYL (PF) 50 MCG/ML 2 ML AMP ONE (10:30)
--- NOTE | 2022-05-18 11:21 | P.OP ---
Date of Procedure: 05/18/22 Preoperative Diagnosis: Menorrhagia Postoperative Diagnosis: Same Procedure(s) Performed: Hysteroscopy, NovaSure endometrial ablation attempted 2, unsuccessful Anesthesia: DANIEL Surgeon: Lesia Nguyen Estimated Blood Loss (ml): 20 IV fluids (ml): 700 Urine output (ml): 500 Pathology: none sent Condition: stable Operative Findings: Essentially normal-appearing intrauterine cavity, on menses. Description of Procedure: Patient is brought to the operating suite where general anesthetic is administered without difficulty. The cervix, vagina, abdomen are all prepped and draped in the usual sterile fashion. The appropriate timeout is performed to assure proper patient and procedural identification. The bladder is drained for approximate 500 mL of clear yellow urine. Examination under anesthesia reveals a small anteverted uterus, adnexa negative bilaterally. Weighted speculum was placed into the vagina and the anterior lip of the cervix is grasped with an Allis clamp. Uterus sounds to a depth of 9 cm in the anteverted position. The cervix was gently and systematically dilated using Hanks dilators. The hysteroscope was introduced and the cavity is infused with saline. Inspection of the cavity is negative, no fibroids, no polyps, no septa, no defects. Hysteroscope was removed. The NovaSure wand is then placed and seated. A uterine depth of 6.5 cm, width of 4.6 cm is noted. The machine is turned on, but will not enable. The [place] is once again checked, noted to be fully intact and properly seated. On a second attempt, again the machine will not enable us to continue. For this reason the wand is removed, the hysteroscope was once again placed and the cavity is noted to be intact, no evidence of perforation or defects. A second set of instruments is chosen, and the machine is swapped out as well. However, upon placing the wand, uterine depth this time of 6.0 cm, width of 4.6 cm, again the machine is properly calibrated but will not enable the procedure. Lastly, a Vaseline impregnated sponge is used to wrap around the device at the cervical seal, but again the machine will not allow us to continue. For this reason, instrumentation is removed. Toradol is given to the patient. Cervix is clean and dry. All sponge and instrument counts are correct. Patient is brought back to the recovery room in stable condition with vital signs pulse 72, blood pressure 103/61, 99% O2 saturation. We will consider Mirena or other progesterone containing IUD to manage these heavy cycles. Patient will follow- up with me in the office in 2 weeks.
[2022-05-18 11:33] VITALS: RESP 16; TEMP 96.8
[2022-05-18] MEDS ORDERED: SODIUM CHLORIDE 0.9% 1,000 ML IV ONE ×2 (11:55)
[2022-05-18 12:47] VITALS: BP 108/67; PULSE 68
== END 2022-05-18 13:30 | disposition home or self-care (01) ==
LOC: OR 08:48
PROVIDERS: ATTEND Obstetrics & Gynecology
DX: N92.1 Excessive and frequent menstruation with irregular cycle (principal); F41.9 Anxiety disorder, unspecified; R00.0 Tachycardia, unspecified; Z98.890 Other specified postprocedural states; Z79.899 Other long term (current) drug therapy; Z53.8 Procedure and treatment not carried out for other reasons
CPT/HCPCS: 81025; 58563; J2250; J1100; J0690; J2405; J3010; J1885; J2704; J2001

== ENCOUNTER → 2022-06-25 | Outpatient (CLI) | payer OTHER ==
--- NOTE | 2022-06-25 15:31 | XR ---
EXAMINATION TYPE: XR chest 2V DATE OF EXAM: 06/25/2022 COMPARISON: Chest x-ray 01/31/2018 HISTORY: Acute cough TECHNIQUE: Frontal and lateral views of the chest are obtained. FINDINGS: There is no focal air space opacity, pleural effusion, or pneumothorax seen. The cardiac silhouette size is within normal limits. Pectus deformity is again noted. There is a mild spinal curv ature. The osseous structures are intact. IMPRESSION: No acute cardiopulmonary process.
== END | disposition home or self-care (01) ==
LOC: RADXRMAIN 14:48
PROVIDERS: ATTEND Family Medicine
DX: R05.1 Acute cough (principal)
CPT/HCPCS: 71046

== ENCOUNTER → 2022-07-07 | Outpatient (CLI) | payer OTHER ==
--- NOTE | 2022-07-07 15:10 | XR ---
EXAMINATION TYPE: XR chest 2V DATE OF EXAM: 07/07/2022 12:01 PM COMPARISON: Chest radiographs from 06/25/2022. TECHNIQUE: XR chest 2V Frontal and lateral views of the chest. CLINICAL INDICATION:Female, 42 years old with history of R05.1 Acute cough; FINDINGS: Lungs/Pleura: There is no evidence of pleural effusion, focal consolidation, or pneumothorax. Pulmonary vascularity: Unremarkable. Heart/mediastinum: Cardiomediastinal silhouette is unremarkable. Musculoskeletal: No acute osseous pathology. IMPRESSION: No acute cardiopulmonary disease/process.
== END | disposition home or self-care (01) ==
LOC: RADXRMAIN 14:49
PROVIDERS: ATTEND Family Medicine
DX: R05.1 Acute cough (principal)
CPT/HCPCS: 71046

== ENCOUNTER → 2022-07-19 | Outpatient (CLI) | payer OTHER ==
[2022-07-19 19:00] LABS: African American GFR (CKD) 117.1 (60.0-200.0); Anion Gap 10.5 mmol/L (10.00-18.00); Blood Urea Nitrogen 15.4 mg/dL (9.0-27.0); Carbon Dioxide 28.2 mmol/L (20.0-27.5)
[2022-07-19 19:38] LABS: Basophils # (A) 0.03 X 10*3/uL (0.00-0.10); Basophils % (A) 0.3 %; Eosinophils # (A) 0.24 X 10*3/uL (0.04-0.35); Eosinophils % (A) 2.2 %; HCT 33.4 % (37.2-46.3); HGB 10.4 g/dL (12.0-15.0); Immature Grans, Automated 4.8 %; Lymphocytes # (A) 3.66 X 10*3/uL (0.90-5.00); Lymphocytes % (A) 33.9 %; MCH 25.9 pg (27.0-32.0); MCHC 31.1 g/dL (32.0-37.0); MCV 83.1 fL (80.0-97.0); Mean Platelet Volume 9.4 fL (9.5-12.2); Monocytes # (A) 0.56 X 10*3/uL (0.20-1.00); Monocytes % (A) 5.2 %; NRBC Per 100 WBC 0 /100 WBCS (0.0-0.0); Neutrophils # (A) 5.78 X 10*3/uL (1.80-7.70); Neutrophils % (A) 53.6 %; Platelet Count 546 X 10*3/uL (140-440); RBC 4.02 X 10*6/uL (4.10-5.20); RBC Morphology NORMAL; RDW 13.4 % (11.5-14.5); WBC 10.79 X 10*3/uL (4.50-10.00)
== END | disposition home or self-care (01) ==
LOC: LABPAT 14:11
PROVIDERS: ATTEND Obstetrics & Gynecology
DX: Z01.812 Encounter for preprocedural laboratory examination (principal); N92.0 Excessive and frequent menstruation with regular cycle
CPT/HCPCS: 80051; 82565; 82947; 84520; 85025; 87086

== ENCOUNTER 2022-07-29 05:54 | Day surgery (SDC) | payer OTHER ==
[2022-07-27 09:41] VITALS: BMI 21.7
[2022-07-29] MEDS ORDERED: DEXAMETHASONE SOD PHOSPHATE 4 MG/ML 1 ML VIAL IV ONE (06:18)
[2022-07-29] MEDS ORDERED: HYDROmorphone 0.5 MG/0.5 ML SYRINGE IVP PRN (06:18)
[2022-07-29] MEDS ORDERED: ONDANSETRON 4 MG/2 ML VIAL IVP ONE (06:18)
[2022-07-29] MEDS ORDERED: LACTATED RINGERS 1,000 ML IV ONE (06:58)
[2022-07-29] MEDS ORDERED: fentaNYL (PF) 50 MCG/1 ML VIAL IVP ONE (07:02)
[2022-07-29] MEDS ORDERED: MIDAZOLAM 2 MG/2 ML VIAL IVP ONE (07:02)
[2022-07-29] MEDS ORDERED: NEOSTIGMINE 1 MG/ML 10 ML VIAL ONE (07:21)
[2022-07-29] MEDS ORDERED: PROPOFOL 10 MG/ML 20 ML VIAL IV ONE (07:21)
[2022-07-29] MEDS ORDERED: GLYCOPYRROLATE 0.2 MG/ML 2 ML VIAL ONE (07:21)
[2022-07-29] MEDS ORDERED: LIDOCAINE 2% INJ 20 MG/ML (2 ML VIAL) ONE (07:21)
[2022-07-29] MEDS ORDERED: ROCURONIUM 10 MG/ML (5 ML VIAL) IV ONE (07:21)
[2022-07-29] MEDS ORDERED: MORPHINE SULFATE (PF) 0.3 MG/0.3 ML SYR ONE (07:21)
[2022-07-29] MEDS ORDERED: NALBUPHINE 10 MG/ML (1 ML AMP) ONE (07:21)
[2022-07-29] MEDS ORDERED: PHENYLEPHRINE-0.9% NACL SYG 1,000 MCG/10 ML SYRINGE ONE (07:21)
[2022-07-29] MEDS ORDERED: KETOROLAC 15 MG/ML 1 ML VIAL ONE (07:21)
[2022-07-29] MEDS ORDERED: fentaNYL (PF) 50 MCG/ML 2 ML AMP ONE (07:21)
[2022-07-29] MEDS ORDERED: NALBUPHINE 10 MG/ML (1 ML AMP) IM ONE (07:32)
[2022-07-29] MEDS ORDERED: VASOPRESSIN 20 UNIT/ML 1 ML VIAL SQ ONE (07:38)
[2022-07-29] MEDS ORDERED: BACITRACIN ZINC 500 UNIT/GM OINT 28.4 GM TUBE TOPICAL ONE (08:15)
--- NOTE | 2022-07-29 08:16 | P.ANPRN ---
Procedure Note - Anesthesia - Epidural/Spinal Spinal Date of Procedure: 07/29/22 Procedure Start Time: 07:05 Procedure Stop Time: 07:10 Location of Patient: PreOp Indication: Acute Post-Operative Pain, Requested by Surgeon Sedation Type: Sedate with meaningful contact maintained Preparation: Sterile Prep Position: Sitting Catheter: None Needle Guage: 25 Blood Aspirated: No Pain Paresthesia on Injection Noted: No Events: Uneventful and Well Tolerated (At L4-L5 interspinous space, 300 g of preservative free morphine, and 25 g of fentanyl used for postoperative pain control into the subarachnoid space.)
[2022-07-29] MEDS ORDERED: METOCLOPRAMIDE 5 MG/ML 2 ML VIAL IVP PRN (08:33)
[2022-07-29] MEDS ORDERED: ONDANSETRON 4 MG/2 ML VIAL IVP PRN (08:33)
[2022-07-29] MEDS ORDERED: SIMETHICONE 80 MG CHEWABLE PO PRN (08:33)
[2022-07-29] MEDS ORDERED: KETOROLAC 15 MG/ML 1 ML VIAL IVP PRN (08:33)
--- NOTE | 2022-07-29 08:33 | P.OP ---
Date of Procedure: 07/29/22 Preoperative Diagnosis: Excessive menorrhagia, failed ablation Postoperative Diagnosis: Normal-appearing ovaries bilaterally Procedure(s) Performed: Vaginal hysterectomy Anesthesia: DANIEL Surgeon: Lesia Nguyen Quilting Machine Helper #1: Meliza Carlton Estimated Blood Loss (ml): 50 IV fluids (ml): 300 Urine output (ml): 125 Pathology: other (Cervix and uterus) Condition: stable Disposition: PACU Description of Procedure: Patient is brought to the operating suite where a spinal with Duramorph is administered. She's placed in the dorsal lithotomy position and a general anesthetic is given. She is then positioned in the dorsal lithotomy position. The cervix vagina perineal body and abdomen are all prepped and draped in usual sterile fashion. Urine hCG is negative. Antibiotics are given. The appropriate timeout is performed to assure proper patient and procedural identification. Bladder is drained for approximately 125 mL of clear yellow urine. Speculum was placed into the vagina and the cervix is grasped with a double-tooth tenaculum. Cervix is injected circumferentially with a dilute Pitressin solution, 10 mL noted. A iroquois blade scalpel is used and the cervix is incised circumferentially with a V positioning at 6:00. Peritoneum is entered at 6:00 with a Metzenbaum scissor, suture held with 2-0 Vicryl, and held with a hemostat. The large billed speculum is then placed into the peritoneal cavity. At all times the bladder swept well from the operative field to avoid bladder and/or ureteral injury. The right uterosacral cardinal ligament complex is identified, clamped with a Sabas, cut and tied and held laterally with a hemostat. Same procedure is carried out contralaterally. Uterine vasculature is skeletonized, clamped cut and suture ligated. 2 additional pedicles are taken superior to the vessels. The uterus is then "walked out" posteriorly. Sabas clamps are used across the final pedicles after the peritoneum is entered at 12:00 with a Bovie. Specimen is removed and sent to pathology. Bilateral ovaries are inspected and noted to be in the normal limits. The pedicles are tied with 0 Vicryl suture, flashed, and retied for excellent hemostasis. The 2-0 Vicryl suture previously placed at 6:00 is now brought around in a pursestring fashion to close the peritoneal cavity. The uterosacral ligament complex these are brought across to incorporate the opposite complex along with vaginal mucosa. 3 additional [id number]-[id number] sutures of 0 Vicryl are placed in the vagina is securely closed. Again hemostasis is excellent. The vagina is packed with a 1 inch iodophor gauze with basic tracing. Abrams is noted to be draining clear urine. All sponge needle and enhancement counts are correct. Patient is brought back to the recovery room in excellent condition with stable vital signs including pulse of 80, 100% O2 saturation, blood pressure 100/58.
[2022-07-29] MEDS ORDERED: MORPHINE SULFATE 4 MG/ML SYRINGE IV ONE ×3 (09:06→09:15)
[2022-07-29] MEDS: LACTATED RINGERS 1,000 ML IV SCH ×2 (13:13→18:23)
[2022-07-29] MEDS: diphenhydrAMINE 50 MG/ML 1 ML VIAL IVP PRN ×2 (13:14→22:06)
[2022-07-29] MEDS: IBUPROFEN 600 MG TAB PO PRN (22:05)
[2022-07-29 22:30] VITALS: RESP 18
[2022-07-30] MEDS: ACETAMINOPHEN TAB 325 MG TAB PO PRN ×2 (04:04→13:34)
--- NOTE | 2022-07-30 06:23 | P.DS ---
Providers Date of admission: t 07/29/22 Expected date of discharge: 07/30/22 Attending physician: Lesia Nguyen Primary care physician: [facility] [place] [facility] Course: This is a 42-year-old female who presented with a history of increasing d ysmenorrhea and menorrhagia, for vaginal hysterectomy. She is a 4 para 4 and had a small amount of uterine descensus. Decision was made to proceed with vaginal surgery. Please see my dictated history and physical for details. Yesterday patient underwent vaginal hysterectomy without issue. Ovaries appeared normal and left in situ. Vaginal packing and Abrams catheter were placed. Please see dictated operative note for details. This morning the patient is doing well. She is voiding, ambulating, passing flatus without difficulty. Vital signs are stable and she is afebrile. Vaginal Packing and Abrams catheter had been removed. She has minimal pain. Abdomen is soft and nontender, active bowel sounds. No CVA tenderness. Scant vaginal drainage. Patient is judged to be in good condition for discharge home later today. She will follow-up with me in the office in 2 weeks. She is reminded no intercourse, tampons or douching. She will use rpup-ejr-hampync Advil or Aleve, or Motrin as needed for pain. She will call with any fevers shakes or chills, foul smelling or copious lochia, with the passage of large blood clots, with any pain not alleviated by bggl-pzh-pwdthez products, or indeed with any concerns. Assessment: Doing well first postoperative day Patient Condition at Discharge: Good Plan - Discharge Summary Discharge Rx Participant: No New Discharge Prescriptions: No Action clonazePAM [Clonazepam] 0.5 mg PO DAILY Omeprazole [PriLOSEC] 10 mg PO DAILY PARoxetine [Paxil] 20 mg PO DAILY Cetirizine HCl [Zyrtec] 10 mg PO DAILY L.acidoph,Paracasei, B.lactis [Probiotic] 1 each PO DAILY Discharge Medication List PARoxetine [Paxil] 20 mg PO DAILY 05/13/22 [History] clonazePAM [Clonazepam] 0.5 mg PO DAILY 05/13/22 [History] Cetirizine HCl [Zyrtec] 10 mg PO DAILY 07/27/22 [History] L.acidoph,Paracasei, B.lactis [Probiotic] 1 each PO DAILY 07/27/22 [History] Omeprazole [PriLOSEC] 10 mg PO DAILY 07/29/22 [History] Follow up Appointment(s)/Referral(s): Lesia Nguyen MD [STAFF PHYSICIAN] - 2 Weeks Discharge Disposition: HOME SELF-CARE
--- NOTE | 2022-07-30 08:08 | P.PN ---
Progress Note - Text Progress Note Date: 07/30/22 (6647) Anesthesia Postop day 1 Subjective: Status Post total hysterectomy with Duramorph. Patient seen and examined. Doing well without complaint. VAS 0. No nausea or vomiting. Mild pruritus tolerable.. Denies fever. Gross lower extremity strength intact. . Without apparent anesthetic complications. Objective: Vital signs reviewed Heart: Regular Rate Lungs: Good chest excursion Abdomen: Appears nondistended Assessment: Status post hysterectomy with Duramorph postop day 1 Plan: Continue current care with your medical management.
[2022-07-30] MEDS: IBUPROFEN 600 MG TAB PO PRN (09:09)
[2022-07-30 09:39] VITALS: BP 100/43; PULSE 86; TEMP 98.6
[2022-07-30] MEDS ORDERED: NALBUPHINE 10 MG/ML (1 ML AMP) IM ONE (13:25)
== END 2022-07-30 13:57 | disposition home or self-care (01) ==
LOC: OR 05:54 → 4FBP 08:33 → OR 07-30 13:57
PROVIDERS: ATTEND Obstetrics & Gynecology
DX: N92.0 Excessive and frequent menstruation with regular cycle (principal); G89.18 Other acute postprocedural pain; F41.9 Anxiety disorder, unspecified; J18.9 Pneumonia, unspecified organism; Z79.890 Hormone replacement therapy
CPT/HCPCS: 81025; 86900; 86901; 86850; 88307; 36415; 58260; 64999; J2250; J2270; J1200; J1100; J2300 ×2; J2710; J0690; J2405; J2274; J3010 ×2; J1885; J2370; J2704; J2001

== ENCOUNTER → 2022-10-26 | Outpatient (CLI) | payer OTHER ==
[2022-10-26 14:47] LABS: Basophils # (A) 0.07 X 10*3/uL (0.00-0.10); Basophils % (A) 0.7 %; Eosinophils # (A) 0.03 X 10*3/uL (0.04-0.35); Eosinophils % (A) 0.3 %; HCT 41.1 % (37.2-46.3); HGB 12.8 g/dL (12.0-15.0); Immature Grans, Automated 0.5 %; Lymphocytes # (A) 3.51 X 10*3/uL (0.90-5.00); MCH 25.6 pg (27.0-32.0); MCHC 31.1 g/dL (32.0-37.0); MCV 82.2 fL (80.0-97.0); Mean Platelet Volume 9.8 fL (9.5-12.2); Monocytes # (A) 0.71 X 10*3/uL (0.20-1.00); Monocytes % (A) 7.3 %; NRBC Per 100 WBC 0 /100 WBCS (0.0-0.0); Neutrophils # (A) 5.37 X 10*3/uL (1.80-7.70); Neutrophils % (A) 55.2 %; Platelet Count 407 X 10*3/uL (140-440); RDW 19.2 % (11.5-14.5); WBC 9.74 X 10*3/uL (4.50-10.00)
[2022-10-26 15:31] LABS: Luteinizing Hormone 8.9 mIU/mL
[2022-10-26 16:15] LABS: ALT 31 U/L (8-44); AST 18 U/L (13-35); African American GFR (CKD) 106.9 (60.0-200.0); Albumin 4.5 g/dL (3.8-4.9); Albumin/Globulin Ratio 1.73 (1.60-3.17); Alkaline Phosphatase 86 U/L (41-126); BUN/Creat Ratio 20.38 Ratio (12.00-20.00); Blood Urea Nitrogen 16.3 mg/dL (9.0-27.0); Calcium 9.3 mg/dL (8.7-10.3); Carbon Dioxide 25.6 mmol/L (20.0-27.5); Chloride 105 mmol/L (96-109); Follicle Stimulating Hormone 7.3 mIU/mL; Globulin 2.6 g/dL (1.6-3.3); Glucose 83 mg/dL (70-110); Non-African American GFR(CKD) 92.2 (60.0-200.0); Sodium 143 mmol/L (135-145); Total Bilirubin <0.15 mg/dL (0.30-1.20); Total Protein 7.1 g/dL (6.2-8.2)
== END | disposition home or self-care (01) ==
LOC: LABWHC1 08:52
PROVIDERS: ATTEND Family Medicine
DX: Z13.29 Encounter for screening for other suspected endocrine disorder (principal); F41.1 Generalized anxiety disorder; F33.1 Major depressive disorder, recurrent, moderate; R63.5 Abnormal weight gain
CPT/HCPCS: 36415; 80053; 82306; 82607; 82670; 83001; 83002; 84144; 84439; 84443; 85025

== ENCOUNTER → 2023-04-06 | Outpatient (CLI) | payer OTHER ==
--- NOTE | 2023-04-07 08:05 | MM ---
Reason for Exam: Screening (asymptomatic). Last screening mammogram was performed 12 month(s) ago. Patient History: Menarche at age 12. First Full-Term at age 30. Hysterectomy at age 42. Mother had breast cancer, age 70. Risk Values: Jana 5 year model risk: 1.3%. NCI Lifetime model risk: 20.3%. Prior Study Comparison: 09/01/2020 Bilateral Screening Mammogram, [facility]. 09/01/2020 Left Diagnostic Mammogram, [facility]. 04/02/2022 Bilateral MG 3D screening mammo w/cad, [facility]. Tissue Density: The breast tissue is heterogeneously dense. This may lower the sensitivity of mammography. Findings: Analyzed By CAD. There is no suspicious group of microcalcifications within either breast. No new suspicious mass within the right breast. There is an ovoid 7 mm circumscribed mass within the left breast posterior depth in the lower inner quadrant. Overall Assessment: Incomplete: need additional imaging evaluation, BI-RAD 0 Management: Diagnostic Breast Ultrasound of the left breast. A clinical breast exam by your physician is recommended on an annual basis and results should be correlated with mammographic findings. [facility] will attempt to contact patient to return for supplemental views and ultrasound if indicated. Note on Jana scores and lifetime risk: 1. A Jana score greater than 3% is considered moderate risk. If this is the case, consider specialist referral to assess eligibility for a risk reducing agent. If overall lifetime risk for the development of breast cancer is 20% or higher, the patient may qualify for future screening with alternating mammogram and breast MRI. Electronically signed and approved by: Cristhian Negron D.O.
== END | disposition home or self-care (01) ==
LOC: RADMAMWWP 09:41
PROVIDERS: ATTEND Obstetrics & Gynecology
DX: Z12.31 Encounter for screening mammogram for malignant neoplasm of breast (principal); Z80.3 Family history of malignant neoplasm of breast
CPT/HCPCS: 77063; 77067

== ENCOUNTER → 2023-04-08 | Outpatient (CLI) | payer OTHER ==
--- NOTE | 2023-04-08 13:44 | USB ---
Reason for Exam: Additional evaluation requested from abnormal screening. Patient History: Menarche at age 12. First Full-Term at age 30. Hysterectomy at age 42. Mother had breast cancer, age 70. Risk Values: Jana 5 year model risk: 1.3%. NCI Lifetime model risk: 20.3%. Technique: Method: Targeted. Patient Position: Supine. Prior Study Comparison: 09/01/2020 Left Diagnostic Mammogram, [facility]. 04/02/2022 Bilateral MG 3D screening mammo w/cad, [facility]. 04/06/2023 Bilateral MG 3D screening mammo w/cad, [facility]. Findings: The lower inner quadrant of the left breast and the retroareolar of the left breast were scanned. Imaged: Ultrasound imaging of: Area of concern, retroareolar region and axilla. Anechoic cyst measuring 6 x 4 x 6 mm at 7:00 7 cm of the nipple. No evidence for organizing fluid collection or mass. Overall Assessment: Benign, BI-RAD 2 Management: Screening Mammogram of both breasts in 1 year. A clinical breast exam by your physician is recommended on an annual basis and results should be correlated with mammographic findings. This exam should not preclude additional follow-up of suspicious palpable abnormalities. Results were given to the patient verbally at the time of exam. Electronically signed and approved by: J Luis Canchola DO
== END | disposition home or self-care (01) ==
LOC: RADUSWWP 13:06
PROVIDERS: ATTEND Obstetrics & Gynecology
DX: R92.8 Other abnormal and inconclusive findings on diagnostic imaging of breast (principal); Z80.3 Family history of malignant neoplasm of breast

== ENCOUNTER → 2023-07-12 | Outpatient (CLI) | payer OTHER ==
--- NOTE | 2023-07-17 13:31 | MR ---
MRI neck w con. HISTORY: Atypical left facial pain, pain and swelling in the jaw. COMPARISON: None TECHNIQUE: Multiple nonionic axial images are obtained from the skull base to the thoracic inlet post IV contrast material. FINDINGS: Mandible is intact and there is no evidence of cortical destruction or periosteal reaction. There is no abnormal bone marrow signal intensity within the mandible. The overlying soft tissues are normal w ithout inflammation or abscess. The larynx including the thyroid, arytenoid and cricoid cartilages as well as the true and false voca l cords are normal and symmetric. The tongue base, epiglottis aryepiglottic folds, piriform sinuses and vallecula are normal. The submandibular glands and parotid glands are normal and symmetric without gross enlargement or foc al mass. The great vessels of the neck are normal. There is no evidence of mediastinal, hilar or axillary adenopathy. The pharyngeal and parapharyngeal soft tissues are normal. Visualized skull base are normal. The posterior fossa including the brainstem, fourth ventricle and c erebellar pontine angles appear normal. IMPRESSION: No significant abnormality seen.
--- NOTE | 2023-07-17 15:03 | MR ---
MRI TMJ HISTORY: TMJ tenderness and bilateral ear pain. COMPARISON: None TECHNIQUE: Multiecho multiplanar images were obtained through the TMJs with the mouth in the open and closed positions. FINDINGS: There is bilateral anterior displacement of the TMJ discs/menisci which does not reduce in the mouth open position with the mouth open position there is further anterior dislocation of the menisci bilat erally. There are no osseous abnormalities. IMPRESSION: Bilateral TMJ menisci anterior dislocations as described above.
== END | disposition home or self-care (01) ==
LOC: RADMRIMAIN 17:36
PROVIDERS: ATTEND Otolaryngology
DX: G50.1 Atypical facial pain (principal); M26.603 Bilateral temporomandibular joint disorder, unspecified; H92.09 Otalgia, unspecified ear
CPT/HCPCS: 70543; 70336; A9585

== ENCOUNTER → 2023-07-20 | Outpatient (CLI) | payer OTHER ==
--- NOTE | 2023-07-20 12:46 | MR ---
EXAMINATION TYPE: MR shoulder LT wo con DATE OF EXAM: 07/20/2023 12:40 PM COMPARISON: NONE HISTORY: Left shoulder pain TECHNIQUE: Multiplanar multispin echo imaging of the left shoulder was performed. FINDINGS: Rotator cuff : Mild heterogeneity of the supraspinatus tendon without evidence for partial or full-th ickness tear. There is no complete or bursal/articular sided partial rotator cuff tear. The subscapul leticia constituent of the rotator cuff is intact. Bursa: No bursal effusion or thickening is seen. Musculature: There is no muscular tear, contusion, or atrophy. Acromioclavicular joint : Mild AC joint arthropathy. Lateral downsloping of the acromion with subacro mial spurring resulting in impingement. Osseous structures : There are no fractures or regions of abnormal bone marrow signal intensity. Long biceps tendon : The biceps tendon is normally situated within the bicipital groove. No complete or partial biceps tendon tear is present. Glenohumeral Joint fluid : There is no glenohumeral joint effusion. Cartilage and Bone : No focal hyaline cartilage defects are noted. No Hill-Sachs, reverse Hill-Sachs, or bony Bankart lesions are seen. Labrum : There are no SLAP or soft tissue Bankart lesions. No paralabral cysts are seen. OTHER FINDINGS : none IMPRESSION: 1. Mild chronic tendinopathy supraspinatus tendon without evidence for tear. 2. Lateral downsloping of the acromion and subacromial spur resulting in mild impingement.
== END | disposition home or self-care (01) ==
LOC: RADMRIMAIN 11:29
PROVIDERS: ATTEND Orthopaedic Surgery Sports Medicine
DX: M75.32 Calcific tendinitis of left shoulder (principal); M25.812 Other specified joint disorders, left shoulder

== ENCOUNTER → 2023-09-05 | Outpatient (CLI) | payer OTHER ==
--- NOTE | 2023-09-05 15:48 | CT ---
CT CHEST FOR PULMONARY EMBOLISM. EXAMINATION TYPE: CT angio chest DATE OF EXAM: 09/05/2023 INDICATION: chest tightness CT DLP: 241.6 mGycm, Automated exposure control for dose reduction was used. CONTRAST: Patient injected with 100 mL of Isovue 370. COMPARISON: None TECHNIQUE: CT of the chest is performed on a spiral scan at 2 mm thick sections. Study is performed with intravenous contrast timed for evaluation for pulmonary embolism. This will limit additional po rtions of the evaluation. 3-D MIP images reconstructed by the technologist are reviewed on the compu ter in the coronal and sagittal planes. FINDINGS: No persistent filling defects are evident to suggest an acute pulmonary embolism. No mediastinal or hilar adenopathy enlarged by CT criteria is evident. The ascending aorta diameter at the level of the main pulmonary artery is 2.7 cm. The main pulmonary artery diameter at the bifur cation is 2.2 cm. Lung windows are clear. No pleural fluid collections evident. Limited CT section through the upper abdomen. Moderate fatty infiltration of the prominent liver is e vident. IMPRESSION: 1. No suspicious acute changes CTA Chest
== END | disposition home or self-care (01) ==
LOC: RADCTMAIN 15:17
PROVIDERS: ATTEND Family Medicine
DX: R07.89 Other chest pain (principal); R09.1 Pleurisy
CPT/HCPCS: 71275; Q9967

== ENCOUNTER → 2023-10-26 | Outpatient (CLI) | payer OTHER ==
--- NOTE | 2023-10-26 16:33 | MR ---
EXAMINATION TYPE: MR thoracic spine wo con DATE OF EXAM: 10/26/2023 3:11 PM CLINICAL INDICATION:Female, 43 years old with history of M54.2 Cervicalgia; PHH, Pain and stiffness x 3 years COMPARISON: 09/05/2023. TECHNIQUE: Multi planar, multi sequence imaging was performed utilizing: T1-weighted, short-tau inver allyson recovery and T2-weighted of the thoracic spine. IV Contrast: cc (none if empty) FINDINGS: Alignment: Alignment is within normal limits. Vertebral bodies have preserved heights. Spinal cord: Spinal cord is within normal limits for signal. Discs: Intervertebral disc signal is maintained. No evidence of significant spinal canal or neural fo raminal stenosis. There is no evidence of extradural defects or central spinal canal narrowing at any thoracic vertebral body level Osseous structures: No abnormal bony edema on inversion recovery sequences. Multilevel osteophyte for mation and facet joint arthropathy. Scattered disc space narrowing. IMPRESSION: No evidence for significant spinal canal or neural foraminal stenosis.
== END | disposition home or self-care (01) ==
LOC: RADMRIMAIN 14:31
PROVIDERS: ATTEND Orthopaedic Surgery Orthopaedic Surgery of the Spine
DX: M54.6 Pain in thoracic spine (principal); M54.2 Cervicalgia; M79.12 Myalgia of auxiliary muscles, head and neck; M79.602 Pain in left arm
CPT/HCPCS: 72146

== ENCOUNTER → 2023-11-09 | Outpatient (CLI) | payer OTHER | END | disposition home or self-care (01) | LOC: LABWHC1 10:34 | PROVIDERS: ATTEND Otolaryngology | DX: J30.89 Other allergic rhinitis (principal) | CPT/HCPCS: 36415; 86001 ==

== ENCOUNTER → 2023-11-24 | Outpatient (CLI) | payer OTHER | END | disposition home or self-care (01) | LOC: LABWHC1 12:10 | PROVIDERS: ATTEND Family Medicine | DX: R14.0 Abdominal distension (gaseous) (principal) | CPT/HCPCS: 36415; 83516 ==

== ENCOUNTER → 2023-12-21 | Outpatient (CLI) | payer OTHER ==
[2023-12-21 16:57] LABS: Basophils # (A) 0.06 X 10*3/uL (0.00-0.10); Basophils % (A) 0.6 %; Eosinophils # (A) 0.28 X 10*3/uL (0.04-0.35); HCT 43.3 % (37.2-46.3); HGB 14.9 g/dL (12.0-15.0); Lymphocytes # (A) 2.75 X 10*3/uL (0.90-5.00); Lymphocytes % (A) 29.3 %; MCH 31.2 pg (27.0-32.0); MCHC 34.4 g/dL (32.0-37.0); MCV 90.8 FL (80.0-97.0); Mean Platelet Volume 10.2 FL (9.5-12.2); Monocytes # (A) 0.66 X 10*3/uL (0.20-1.00); NRBC Per 100 WBC 0 X 10*3/uL (0.00-0.01); Neutrophils # (A) 5.57 X 10*3/uL (1.80-7.70); Neutrophils % (A) 59.2 %; Platelet Count 307 X 10*3/uL (140-440); RBC 4.77 X 10*6/uL (4.10-5.20); RDW 12.4 % (11.5-14.5)
[2023-12-21 17:22] LABS: ALT 95 U/L (8-44); AST 57 U/L (13-35); Albumin 4.8 g/dL (3.8-4.9); Albumin/Globulin Ratio 1.55 Ratio (1.60-3.17); Alkaline Phosphatase 120 U/L (41-126); BUN/Creat Ratio 14.43 Ratio (12.00-20.00); Blood Urea Nitrogen 10.1 mg/dL (9.0-27.0); Calcium 10.4 mg/dL (8.7-10.3); Carbon Dioxide 24.6 mmol/L (21.6-31.8); Chloride 103 mmol/L (96-109); Globulin 3.1 g/dL (1.6-3.3); Glucose 79 mg/dL (70-110); Potassium 4.3 mmol/L (3.5-5.5); Sodium 140 mmol/L (135-145); Total Bilirubin 0.3 mg/dL (0.3-1.2); Total Protein 7.9 g/dL (6.2-8.2)
== END | disposition home or self-care (01) ==
LOC: LABWHC1 11:43
PROVIDERS: ATTEND Internal Medicine Gastroenterology
DX: R94.5 Abnormal results of liver function studies (principal)
CPT/HCPCS: 36415; 80053; 85025

== ENCOUNTER → 2023-12-22 | Outpatient (CLI) | payer OTHER ==
--- NOTE | 2023-12-24 10:53 | CT ---
EXAMINATION TYPE: CT urogram wo/w con and with 3-D reconstruction renderings at an independent workst ation DATE OF EXAM: 12/22/2023 HISTORY: thickened bladder CT DLP: 1599.2mGycm Automated Exposure Control for Dose Reduction was Utilized. CONTRAST: CT scan of the abdomen and pelvis is performed with IV Contrast, patient injected with 100 ml mL of Isovue 370. COMPARISON: None. FINDINGS: LUNG BASES: No acute process. LIVER: Steatosis noted. There is a 2 cm subcapsular smoothly marginated lesion within segment 2, which demonstrates homogeneo us contrast enhancement on portal venous (axial image 11/55) and delayed urogram phase imaging (axial image 13/101). No other focal findings. BILIARY: No significant abnormality is appreciated. PANCREAS: No significant abnormality is seen. SPLEEN: No splenomegaly or focal lesions. ADRENALS: No nodules. KIDNEYS/COLLECTING SYSTEMS: No acute process. No calcifications. No focal mass. BOWEL: No bowel dilation. No inflammation. PERITONEAL CAVITY: No pneumoperitoneum or fluid. EXTRAPERITONEAL SPACES: Unremarkable. LYMPH NODES: No greater than 1cm abdominal or pelvic lymph nodes are appreciated. VASCULATURE: No acute process. PELVIC VISCERA: No gross abnormality seen. Bladder is unremarkable. OSSEOUS STRUCTURES: No significant abnormality is seen. IMPRESSION: 2 cm left hepatic lobe lesion which may represent hemangioma but dedicated MRI Abdomen liver protocol w/o and w contrast recommended to ensure benignity.
== END | disposition home or self-care (01) ==
LOC: RADCTMAIN 16:17
PROVIDERS: ATTEND Urology
DX: D30.20 Benign neoplasm of unspecified ureter (principal); K76.9 Liver disease, unspecified
CPT/HCPCS: 74178; 74400; Q9967

== ENCOUNTER → 2024-01-07 | Outpatient (CLI) | payer OTHER ==
--- NOTE | 2024-01-08 02:51 | MR ---
EXAMINATION TYPE: MR abdomen wo/w con DATE OF EXAM: 01/07/2024 COMPARISON: Recent CT urogram December 22, 2023 HISTORY: Elevated liver enzymes, abnormal CT. CONTRAST: Standard multiplanar, multisequence MRI departmental protocol images were obtained without contrast a nd with 7.5 mL intravenous Gadobutrol gadolinium contrast. Imaging of the abdomen focusing on the li oz. FINDINGS: Liver: Liver redemonstrated normal in size. There is diffuse signal dropout in the liver consistent w ith fatty infiltrative hepatocellular disease which correlates with recent CT. In the left hepatic lo be anteriorly, there is persistent 1.5 cm round lesion of T1 hypointensity and T2 hyperintensity. Dyn amic imaging is suboptimal as there is no dedicated arterial phase. There is homogeneous enhancement of the mass which becomes slightly less dense on delayed imaging. Contracted gallbladder current stud y. No biliary dilatation. Other: Lung bases are grossly clear. The spleen and both adrenal glands are unremarkable. The pancrea s and both kidneys are unremarkable. No abnormal bowel dilatation. No free fluid in the abdomen. Osse ous structures are intact. IMPRESSION: Marked fatty infiltration or hepatocellular disease redemonstrated. In the anterior aspec t left hepatic lobe there is persistent 1.5 cm mass favoring a nonaggressive etiology, suspect flash filling hemangioma.
== END | disposition home or self-care (01) ==
LOC: RADMRIMAIN 14:16
PROVIDERS: ATTEND Internal Medicine Gastroenterology
DX: R16.0 Hepatomegaly, not elsewhere classified (principal); K76.89 Other specified diseases of liver; R74.8 Abnormal levels of other serum enzymes
CPT/HCPCS: 74183; A9585

== ENCOUNTER → 2024-01-10 | Outpatient (CLI) | payer OTHER ==
--- NOTE | 2024-01-18 11:21 | MR ---
EXAMINATION TYPE: MR green wo con DATE OF EXAM: 01/10/2024 5:38 PM COMPARISON: NONE HISTORY: Occipital neuralgia, lower back pain. Multiplanar MultiSpin echo imaging of the cervical spine was performed. Comparison: none C2-C3: No evidence for degenerative disc disease. No disc bulge/herniation or protrusion. No Canal stenosis. Foramina are patent bilaterally. C3-C4: No evidence for degenerative disc disease. No disc bulge/herniation or protrusion. No Canal stenosis. Foramina are patent bilaterally. C4-C5: No evidence for degenerative disc disease. No disc bulge/herniation or protrusion. No Canal stenosis. Foramina are patent bilaterally. C5-C6: No evidence for degenerative disc disease. Minimal disc bulge is noted. No herniation or centr al stenosis. No Canal stenosis. Foramina are patent bilaterally. C6-C7: No evidence for degenerative disc disease. Minimal disc bulge is noted. No herniation or cent ral stenosis. No Canal stenosis. Foramina are patent bilaterally. C7-T1: No evidence for degenerative disc disease. No disc bulge/herniation or protrusion. No Canal stenosis. Foramina are patent bilaterally. Cervical segments are intact. There is normal alignment. Cervical spinal cord is of normal signal. Craniovertebral junction relationships are within normal limits. IMPRESSION: 1. Minimal bulging at C5-6 and C6-7. EXAMINATION TYPE: MR peter persaud con DATE OF EXAM: 01/10/2024 5:38 PM COMPARISON: NONE HISTORY: Occipital neuralgia, lower back pain. Multiplanar, MultiSpin echo imaging of the lumbar spine was performed. L1-L2: Normal disc appearance without desiccation. No herniation, protrusion or disc bulging. No ca nal stenosis is present. Foramina are patent bilaterally. L2-L3: Normal disc appearance without desiccation. No herniation, protrusion or disc bulging. No ca nal stenosis is present. Foramina are patent bilaterally. L3-L4: Normal disc appearance without desiccation. No herniation, protrusion or disc bulging. No ca nal stenosis is present. Foramina are patent bilaterally. L4-L5: Normal disc appearance without desiccation. No herniation, protrusion or disc bulging. No ca nal stenosis is present. Foramina are patent bilaterally. L5-S1: Normal disc appearance without desiccation. No herniation, protrusion or disc bulging. No ca nal stenosis is present. Foramina are patent bilaterally. Lumbar segments are intact. No paraspinal masses are identified. Conus medullaris has a normal appe arance. IMPRESSION: 1. Normal lumbar spine
== END | disposition home or self-care (01) ==
LOC: RADMRIMAIN 16:33
PROVIDERS: ATTEND Psychiatry & Neurology Neurology
DX: M50.322 Other cervical disc degeneration at C5-C6 level (principal); M50.323 Other cervical disc degeneration at C6-C7 level; M54.50 Low back pain, unspecified
CPT/HCPCS: 72141; 72148

== ENCOUNTER → 2024-02-16 | Outpatient (CLI) | payer OTHER ==
--- NOTE | 2024-02-17 09:33 | US ---
EXAMINATION TYPE: US thyroid st tissue head/neck DATE OF EXAM: 02/16/2024 COMPARISON: NONE CLINICAL INDICATION: Female, 43 years old with history of E07.9 ENLARGED THYROID; Not on thyroid meds GLAND SIZE: Right Lobe: 4.1 x 1.5 x 1.4 cm Overall Parenchyma: homogeneous Left Lobe: 3.5 x 1.2 x 1.1 cm Overall Parenchyma: homogeneous Isthmus Thickness: 0.4 cm NODULES RIGHT: # of nodules measured on right: 0 LEFT: # of nodules measured on left: 0 ISTHMUS: # of nodules measured in the isthmus: 0 Bilateral neck scanned, no evidence of lymphadenopathy. IMPRESSION: 1. No thyromegaly. 2. No thyroid nodules. 2017 ACR TI-RADS LEVEL: 0 *Highest TI-RADS level nodule reported
== END | disposition home or self-care (01) ==
LOC: RADUSWWP 15:03
PROVIDERS: ATTEND Family Medicine
DX: E07.9 Disorder of thyroid, unspecified (principal); E04.9 Nontoxic goiter, unspecified
CPT/HCPCS: 76536

== ENCOUNTER → 2024-03-21 | Outpatient (CLI) | payer OTHER ==
[2024-03-21 18:44] LABS: Basophils # (A) 0.06 X 10*3/uL (0.00-0.10); Eosinophils # (A) 0.21 X 10*3/uL (0.04-0.35); Eosinophils % (A) 3.5 %; HCT 44.5 % (37.2-46.3); Lymphocytes # (A) 1.99 X 10*3/uL (0.90-5.00); Lymphocytes % (A) 33.1 %; MCH 31.6 pg (27.0-32.0); MCHC 33.7 g/dL (32.0-37.0); MCV 93.9 FL (80.0-97.0); Mean Platelet Volume 10.6 FL (9.5-12.2); Monocytes # (A) 0.38 X 10*3/uL (0.20-1.00); Monocytes % (A) 6.3 %; NRBC Per 100 WBC 0 X 10*3/uL (0.00-0.01); Neutrophils # (A) 3.35 X 10*3/uL (1.80-7.70); Neutrophils % (A) 55.8 %; Platelet Count 294 X 10*3/uL (140-440); RBC 4.74 X 10*6/uL (4.10-5.20); RDW 12.5 % (11.5-14.5); WBC 6.01 X 10*3/uL (4.50-10.00)
[2024-03-21 19:01] LABS: BUN/Creat Ratio 17.62 Ratio (12.00-20.00); Blood Urea Nitrogen 14.1 mg/dL (9.0-27.0); Chloride 105 mmol/L (96-109); Glucose 83 mg/dL (70-110); Potassium 4.3 mmol/L (3.5-5.5); Sodium 142 mmol/L (135-145)
[2024-03-21 19:02] LABS: ALT 117 U/L (8-44); AST 68 U/L (13-35); Albumin 4.7 g/dL (3.8-4.9); Albumin/Globulin Ratio 1.81 Ratio (1.60-3.17); Alkaline Phosphatase 110 U/L (41-126); Calcium 10.1 mg/dL (8.7-10.3); Globulin 2.6 g/dL (1.6-3.3); Total Bilirubin 0.4 mg/dL (0.3-1.2); Total Protein 7.3 g/dL (6.2-8.2)
== END | disposition home or self-care (01) ==
LOC: LABWHC1 12:30
PROVIDERS: ATTEND Internal Medicine Gastroenterology
DX: R94.5 Abnormal results of liver function studies (principal)
CPT/HCPCS: 36415; 80053; 85025

== ENCOUNTER → 2024-03-28 | Outpatient (CLI) | payer OTHER ==
[2024-03-28 18:26] LABS: Basophils # (A) 0.08 X 10*3/uL (0.00-0.10); Basophils % (A) 0.9 %; Eosinophils # (A) 0.26 X 10*3/uL (0.04-0.35); HCT 43.4 % (37.2-46.3); HGB 14.7 g/dL (12.0-15.0); Lymphocytes # (A) 2.72 X 10*3/uL (0.90-5.00); Lymphocytes % (A) 31.5 %; MCHC 33.9 g/dL (32.0-37.0); MCV 91.6 FL (80.0-97.0); Mean Platelet Volume 10.3 FL (9.5-12.2); Monocytes % (A) 6.9 %; NRBC Per 100 WBC 0 X 10*3/uL (0.00-0.01); Neutrophils # (A) 4.94 X 10*3/uL (1.80-7.70); Neutrophils % (A) 57.2 %; Platelet Count 300 X 10*3/uL (140-440); RBC 4.74 X 10*6/uL (4.10-5.20); WBC 8.64 X 10*3/uL (4.50-10.00)
[2024-03-28 19:46] LABS: Hepatitis B Surface Antigen Nonreactive (Nonreactive); Hepatitis C IgG Antibody Nonreactive (Nonreactive)
[2024-03-28 21:12] LABS: ALT 113 U/L (8-44); AST 63 U/L (13-35); Albumin 4.7 g/dL (3.8-4.9); Albumin/Globulin Ratio 1.74 Ratio (1.60-3.17); Alkaline Phosphatase 112 U/L (41-126); BUN/Creat Ratio 16.43 Ratio (12.00-20.00); Blood Urea Nitrogen 11.5 mg/dL (9.0-27.0); Carbon Dioxide 23.8 mmol/L (21.6-31.8); Chloride 101 mmol/L (96-109); Globulin 2.7 g/dL (1.6-3.3); Glucose 87 mg/dL (70-110); Iron 114 UG/DL (50-170); Potassium 4.3 mmol/L (3.5-5.5); Sodium 139 mmol/L (135-145); Total Bilirubin 0.3 mg/dL (0.3-1.2); Total Iron Binding Capacity 400 UG/DL (228-460); Total Protein 7.4 g/dL (6.2-8.2)
[2024-03-28 22:52] LABS: Protein, Total 7.5 g/dL (6.2-8.2)
[2024-03-29 17:24] LABS: Albumin 4.51 g/dL (3.80-4.90); Gamma Globulin 1.07 g/dL (0.70-1.50)
== END | disposition home or self-care (01) ==
LOC: LABWHC1 15:40
PROVIDERS: ATTEND Internal Medicine Gastroenterology
DX: R94.5 Abnormal results of liver function studies (principal)
CPT/HCPCS: 36415; 80053; 82103; 82390; 82728; 83516; 83540; 83550; 84165; 85025; 86038; 86803; 87340

== ENCOUNTER → 2024-04-09 | Outpatient (CLI) | payer OTHER ==
--- NOTE | 2024-04-12 12:51 | MM ---
Reason for Exam: Screening (asymptomatic). Last screening mammogram was performed 12 month(s) ago. Patient History: Menarche at age 12. First Full-Term at age 30. Hysterectomy at age 42. Currently . Mother had breast cancer, age 70. Risk Values: Jana 5 year model risk: 1.4%. NCI Lifetime model risk: 20.1%. Prior Study Comparison: 09/01/2020 Left Diagnostic Mammogram, [facility]. 04/02/2022 Bilateral MG 3D screening mammo w/cad, [facility]. 04/06/2023 Bilateral MG 3D screening mammo w/cad, [facility]. Tissue Density: The breasts are heterogeneously dense, which may obscure small masses. Findings: Analyzed By CAD. Right breast: There is no suspicious group of microcalcifications or new suspicious mass. Left breast: There is no suspicious group of microcalcifications or new suspicious mass. Overall Assessment: Negative, BI-RAD 1 Management: Screening Mammogram of both breasts in [address] [facility] will attempt to contact patient to return for supplemental views and ultrasound if indicated. Patient should continue monthly self-breast exams. A clinical breast exam by your physician is recommended on an annual basis. This exam should not preclude additional follow-up of suspicious palpable abnormalities. Note on Jana scores and lifetime risk: 1. A Jana score greater than 3% is considered moderate risk. If this is the case, consider specialist referral to assess eligibility for a risk reducing agent. 2. If overall lifetime risk for the development of breast cancer is 20% or higher, the patient may qualify for future screening with alternating mammogram and breast MRI. Electronically signed and approved by: J Luis Canchola DO
== END | disposition home or self-care (01) ==
LOC: RADMAMWWP 10:35
PROVIDERS: ATTEND Obstetrics & Gynecology
DX: Z12.31 Encounter for screening mammogram for malignant neoplasm of breast (principal); Z80.3 Family history of malignant neoplasm of breast
CPT/HCPCS: 77063; 77067

== ENCOUNTER → 2024-04-23 | Outpatient (CLI) | payer OTHER ==
[2024-04-23 15:24] VITALS: BP 117/77; PULSE 84; RESP 16; TEMP 97.7
--- NOTE | 2024-04-23 15:58 | P.SLEEP ---
History of Present Illness DATE: 04/23/2024 CONSULTATION/NEW PATIENT EVALUATION HISTORY OF PRESENT ILLNESS/SLEEP-WAKE EVALUATION: 44-year-old lady had been e valuated in the sleep center for evaluation of sleepiness and possible obstructive sleep apnea hypopnea syndrome. SLEEP SCHEDULE: Usually sleep schedule from 10 PM to 7 AM on weekdays and from 1011 PM to 8309:30 AM on weekend. FALLING ASLEEP: Sometimes patient has difficulties with falling asleep, has TV set in bedroom. DURING SLEEP: Patient usually sleeps on the side position with loud snoring and changing of position during the sleep several times. No history of hypnogogical hallucinations, sleep paralysis, or cataplexy. DURING THE DAY/WAKE STATE: In the morning patient wake up tired, falling asleep during the day, has problems with concentration, irritability, anxiety. [place] sleepiness scale is significantly increased to 15. Patient has 4 kids and does not have time to take naps. PAST MEDICAL HISTORY: Allergy, back pain, acid reflux. PAST SURGICAL HISTORY: Partial hysterectomy, left shoulder surgery. MEDICATIONS: Please see below. SOCIAL HISTORY: Please see below. FAMILY HISTORY: Stroke, cancer, during the sleep, diabetes, acid reflux. REVIEW OF SYSTEMS: Snoring, sleepiness during the day. No fevers. No double vision. No recent chest pain. No shortness of breath. No abdominal pain. No bleeding episodes. No blood in urine. No seizure episodes. PHYSICAL EXAMINATION: GENERAL: A pleasant patient without any distress. VITAL SIGNS: Please see below. HEENT: PERRLA, EOMI. Evaluation of oropharynx showed tongue protrudes midline, low position of soft palate Mallampati 3, retrognathia 2 mm. NECK: Supple. No JVD. Thyroid is not palpable. 14.5 inches in circumference. LUNGS: Clear to percussion and to auscultation. Good air exchange. No wheezing or rhonchi. HEART: S1, S2 regular. No murmurs, gallops or rubs. ABDOMEN: Soft and nontender. Bowel sounds are present. No organomegaly appreciated. EXTREMITIES: No clubbing or cyanosis. [employer]IVER: Awake, alert, and oriented x3. Cranial nerves 2 to 7 intact. There is no fasciculation or atrophy noted. No focal deficits observed. ASSESSMENT: 1. Snoring, awakenings from sleep, low position of soft palate, retrognathia, excessive daytime sleepiness. Possible obstructive sleep apnea hypopnea syndro me. 2. Significant excessive daytime sleepiness with [place] Sleepiness Scale 15 dictate necessity to include idiopathic hypersomnia and narcolepsy and differential diagnosis. 3. Back pain. 4. Acid reflux. 5 allergy. 6 . Status post partial hysterectomy. 7. Status post left shoulder surgery. PLAN: 1. Polysomnography for evaluation of patient's breathing during sleep. MSLT, if polysomnogram will be negative for obstructive sleep apnea hypopnea syndrome. 2. Following plan after reading sleep study 3. Preferable position during sleep on the side. 4. No driving if patient feels any sleepiness. Patient is aware of civil and criminal liability for unsafe driving. 5. Sleep hygiene with regular sleep time for at least 7.5-8 hours. Thank you very much for referring this patient for consultation. Sincerely, Nitin Stiles MD, PhD, FAASM. Diplomat of [place] [employer], Sleep Medicine Board by [place] [employer] [place] [employer] [facility] [place] Past Medical History Past Medical History: GERD/Reflux, Liver Disease Additional Past Medical History / Comment(s): Fatty Liver History of Any Multi-Drug Resistant Organisms: None Reported Past Surgical History: Hysterectomy, Orthopedic Surgery Additional Past Surgical History / Comment(s): partial hysterectomy 2021, L shoulder 2022 Past Anesthesia/Blood Transfusion Reactions: No Reported Reaction Past Psychological History: Anxiety Smoking Status: Never smoker Past Alcohol Use History: None Reported Past Drug Use History: None Reported - Past Family History Father Family Medical History: Cancer, COPD, Hyperlipidemia, Hypertension Mother Family Medical History: Cancer, Diabetes Mellitus Additional Family Medical History / Comment(s): breast cancer Medications and Allergies Home Medications Medication Instructions Recorded Confirmed Type PARoxetine [Paxil] 20 mg PO DAILY 05/13/22 07/29/22 History clonazePAM [Clonazepam] 0.5 mg PO DAILY 05/13/22 04/23/24 History Cetirizine HCl [Zyrtec] 10 mg PO DAILY 07/27/22 04/23/24 History L.acidoph,Paracasei, B.lactis 1 each PO DAILY 07/27/22 07/29/22 History [Probiotic] Omeprazole [PriLOSEC] 10 mg PO DAILY 07/29/22 04/23/24 History Phentermine HCl 37.5 mg PO DAILY 04/23/24 04/23/24 History Allergies Allergy/AdvReac Type Severity Reaction Status Date / Time doxylamine Allergy Rapid Verified 07/29/22 06:23 [From [facility] (doxylamine)] Heart Rate clindamycin AdvReac Unknown Verified 07/29/22 06:23 Physical Exam Vitals: Vital Signs Temp Pulse Resp BP Pulse Ox 04/23/24 15:23 97.7 F 84 16 117/77 100 Intake and Output 04/23/24 04/23/24 04/23/24 06:59 14:59 22:59 Other: Weight 71.668 kg Sleep Note - Sleep Data ESS Total: 15 - Sleep Note Sleep Note: Temperature: 97.7 F Pulse Rate: 84 Respiratory Rate: 16 Blood Pressure: 117/77 SpO2: 100 Height: 5 ft 6.2 in Weight: 71.668 kg BMI: Neck Circumference: 14.5
== END ==
LOC: 3 N SLEEP 14:30
PROVIDERS: ATTEND Internal Medicine
DX: R06.83 Snoring (principal); M26.19 Other specified anomalies of jaw-cranial base relationship; M54.9 Dorsalgia, unspecified; K21.9 Gastro-esophageal reflux disease without esophagitis; Z90.710 Acquired absence of both cervix and uterus; Z98.890 Other specified postprocedural states; Z88.8 Allergy status to other drugs, medicaments and biological substances; Z88.1 Allergy status to other antibiotic agents
CPT/HCPCS: 99211

== ENCOUNTER 2024-05-21 19:25 | Outpatient (CLI) | payer OTHER ==
--- NOTE | 2024-06-21 11:46 | SLS ---
SLEEP STUDY PROCEDURES: 1. Polysomnogram, date 05/21/2024. 2. Multiple sleep latency test, date 05/22/2024. CLINICAL: Polysomnography has been done for evaluation of the patient's breathing during sleep. PROCEDURE DESCRIPTION: The standard montage for clinical polysomnography included the electroencephalogram, electroculogram, the mentalis surface electromyography, and lead II cardiography. The respiratory battery consisted of measurements of nasal/buccal airflow; pressure transducer measurements from nose, thoracic, and abdominal effort; and intercostal surface electromyography. Video monitoring has been done to check for any parasomnia events. Nocturnal oxyhemoglobin saturations were obtained by finger oximetry. Raw data of sleep recording has been reviewed and is adequate. RESULTS: During diagnostic polysomnogram, recording time 472.6 minutes. Sleep efficiency was normal 91.9%. Latency to sleep onset was normal 20.0 minutes. Sleep architecture showed extremely short stage I sleep 0.6%, normal amount of delta sleep 18.7%, and normal amount of REM sleep 18.2%. Respiratory channel showed no apneas and one hypopnea with total apnea-hypopnea index 0.1 and lowest oxygen level 90%. EMG did not show any periodic limb movements. Multiple sleep latency test has been done on the following day, consisted from 5 naps. The patient fell asleep on 4 naps and did not fall asleep on the first nap. Mean sleep latency 9.9 minutes, which is slightly short but not on the range which confirmed narcolepsy or idiopathic hypersomnia. IMPRESSION: 1. No significant respiratory abnormalities have been documented during the sleep study, normal oxygenation during sleep. 2. Multiple sleep latency test showed borderline results, did not confirm pathological sleepiness. PLAN: 1. I will see patient for followup visit to explain results of the test and recommendations. 2. Sleep hygiene with regular time in bed for at least 8 hours. 3. Precautions related to driving. No driving if feeling sleepiness. Thank you very much for allowing me to participate in the management of your patient. Sincerely, Nitin Stiles MD, PhD, FAASM Diplomat of [place] [employer] Sleep Medicine Board of [place] [employer] Commanding [employer] [facility] [place] MMODL / IJN: [id number] /
== END 2024-05-22 17:00 | disposition home or self-care (01) ==
LOC: 3 N SLEEP 19:25
PROVIDERS: ATTEND Internal Medicine
CPT/HCPCS: 95805; 95810

== ENCOUNTER → 2024-05-24 | Outpatient (CLI) | payer OTHER ==
--- NOTE | 2024-06-07 08:13 | PN ---
PROGRESS NOTE DATE OF SERVICE: 05/24/2024 Followup visit in Sleep Center. A 44-year-old lady has been followed in Sleep Center to discuss results of sleep study and following plan. I discussed results of sleep study with the patient and family in detail. Diagnostic polysomnogram did not show any significant respiratory abnormalities at all, only one hypopnea documented. Lowest oxygen level above 90%. No periodic limb movements have been documented. Multiple sleep latency test on the following day consisted from 5 naps. The patient did not fall asleep on first nap and fell asleep on other 4 naps with mean sleep latency 9.9 minutes, which is slightly short, but not on the range which indicate possibility of narcolepsy or idiopathic hypersomnia. During diagnostic polysomnogram. Stage N1 was very short, only 0.6%, which may indicate possibility of insufficient amount of sleep. PHYSICAL EXAMINATION: GENERAL: The patient in no distress. VITAL SIGNS: BP 122/75, HR 98, RR 16, temperature 98.0, oxygen saturation at room air 99%. HEENT: PERRLA, EOMI, evaluation of oropharynx showed tongue protrudes midline. NECK: Supple, no JVD. Thyroid is not palpable. LUNGS: Clear to percussion and to auscultation. Good air exchange. No wheezing or rhonchi. HEART: S1, S2 regular. No murmurs, gallops, or rubs. ABDOMEN: Soft and nontender. Bowel sounds are present. No organomegaly appreciated. EXTREMITIES: No clubbing or cyanosis. No edema. [employer] SUPERVISOR: Awake, alert, and oriented X3. Cranial nerves 2 to 7 intact. There is no fasciculation or atrophy. noted. No focal deficits observed. IMPRESSION: 1. No significant respiratory abnormalities during sleep study. Normal oxygenation during sleep. No snoring. 2. No significant periodic limb movements. 3. Short stage I of sleep, which may indicate possibility of insufficient amount of sleep. 4. Multiple sleep latency test, slightly short mean sleep latency but not in the range which indicate possibility of narcolepsy or idiopathic hypersomnia. No sleep-onset REM periods have been documented. PLAN: 1. Sleep hygiene, regular time bed for at least 8 hours. 2. Precautions related to driving. No driving if feeling sleepiness. 3. Preferable position during sleep on the side. 4. Follow-up visit in 1 year. Thank you very much for allowing me to participate in the management of your patient. MMRANDALL / IJN: [id number] /
== END ==
LOC: 3 N SLEEP 15:20
PROVIDERS: ATTEND Internal Medicine
CPT/HCPCS: 99212

== ENCOUNTER → 2024-10-16 | Outpatient (CLI) | payer OTHER ==
[2024-10-16 20:30] LABS: Estradiol 53.6 pg/mL
[2024-10-16 20:31] LABS: ALT 95 U/L (8-44); AST 54 U/L (13-35); Albumin 4.6 g/dL (3.8-4.9); Albumin/Globulin Ratio 1.77 Ratio (1.60-3.17); Alkaline Phosphatase 96 U/L (41-126); BUN/Creat Ratio 22.57 Ratio (12.00-20.00); Blood Urea Nitrogen 15.8 mg/dL (9.0-27.0); Calcium 9.5 mg/dL (8.7-10.3); Carbon Dioxide 24.2 mmol/L (21.6-31.8); Chloride 106 mmol/L (96-109); Globulin 2.6 g/dL (1.6-3.3); Glucose 84 mg/dL (70-110); Potassium 4.2 mmol/L (3.5-5.5); Sodium 141 mmol/L (135-145); Total Bilirubin 0.4 mg/dL (0.3-1.2); Total Protein 7.2 g/dL (6.2-8.2)
[2024-10-16 20:39] LABS: HGB 14.4 g/dL (12.0-15.0); MCH 31.2 pg (27.0-32.0); MCHC 33.5 g/dL (32.0-37.0); MCV 93.3 FL (80.0-97.0); NRBC Per 100 WBC 0 X 10*3/uL (0.00-0.01); Platelet Count 312 X 10*3/uL (140-440); RBC 4.61 X 10*6/uL (4.10-5.20); RDW 12.3 % (11.5-14.5); WBC 6.56 X 10*3/uL (4.50-10.00)
[2024-10-16 20:40] LABS: Follicle Stimulating Hormone 7.7 mIU/mL
== END | disposition home or self-care (01) ==
LOC: LABWHC1 11:22
PROVIDERS: ATTEND Internal Medicine Gastroenterology
DX: N95.1 Menopausal and female climacteric states (principal); R61 Generalized hyperhidrosis; R14.0 Abdominal distension (gaseous); K76.0 Fatty (change of) liver, not elsewhere classified
CPT/HCPCS: 36415; 80053; 82670; 83001; 84144; 84403; 85027

== ENCOUNTER → 2025-04-18 | Outpatient (CLI) | payer OTHER ==
[2025-04-18 15:10] LABS: HCT 42.5 % (37.2-46.3); HGB 14.3 g/dL (12.0-15.0); MCH 30.4 pg (27.0-32.0); MCHC 33.6 g/dL (32.0-37.0); MCV 90.2 FL (80.0-97.0); NRBC Per 100 WBC 0 X 10*3/uL (0.00-0.01); Platelet Count 294 X 10*3/uL (140-440); RBC 4.71 X 10*6/uL (4.10-5.20); RDW 12.2 % (11.5-14.5); WBC 7.33 X 10*3/uL (4.50-10.00)
[2025-04-18 15:16] LABS: ALT 49 U/L (8-44); AST 35 U/L (13-35); Albumin 4.8 g/dL (3.8-4.9); Albumin/Globulin Ratio 1.85 Ratio (1.60-3.17); Alkaline Phosphatase 87 U/L (41-126); Anion Gap 12.40 mmol/L (4.00-12.00); BUN/Creat Ratio 20.57 Ratio (12.00-20.00); Blood Urea Nitrogen 14.4 mg/dL (9.0-27.0); Calcium 9.9 mg/dL (8.7-10.3); Carbon Dioxide 23.6 mmol/L (21.6-31.8); Chloride 106 mmol/L (96-109); Globulin 2.6 g/dL (1.6-3.3); Glucose 89 mg/dL (70-110); Potassium 4.6 mmol/L (3.5-5.5); Sodium 142 mmol/L (135-145); Total Protein 7.4 g/dL (6.2-8.2)
== END | disposition home or self-care (01) ==
LOC: LABWHC1 08:48
PROVIDERS: ATTEND Internal Medicine Gastroenterology
DX: K76.0 Fatty (change of) liver, not elsewhere classified (principal)
CPT/HCPCS: 36415; 80053; 85027